=== PATIENT | female | born 1980 | race Caucasian/White ===

== ENCOUNTER 2017-01-04 16:19 | Emergency (ER) | payer BC ==
[~2017-01-04] VITALS: Ht 160 cm; Wt 88.5 kg
[~2017-01-04 16:19] MED LIST: ALPR-557 PO; ALPR2TAB2 PO; CEPH500C PO; CLON1TAB PO; CTLP20T PO; DCS100C PO; DULO60CA6; DULO60CA6 PO; FRS325T PO; IBP800T PO; LURA60TA2 PO; METR500T PO; MTR250T PO; NITR100C3 PO; ONDA4TAB8 PO; ONDAN4ODT PO; PHEN200T27 PO; PRD20T PO; PREN1TAB39 PO; PRM50SU PR; PROM25SU10 PR; SERT50TA PO; TEMA15CA54; TOPI100T PO; TRAZ50TA67; ZLP10T PO; lamictal PO
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
--- OUTSIDE RECORDS SUMMARY | 2017-01-04 16:25 | XMS REPORT ---
Author Author PORTIA GRIDER [facility] eClinicalWorks Address Unknown Phone Unavailable Care Team Providers Care Food Preparation Worker Name Role Phone PORTIA GRIDER CP Unavailable Allergies No Known Allergies Problems Problem Type Condition Code Onset Dates Condition Status Problem Incontinence R32 Active Problem Edema R60.9 Active Problem Hyperinsulinemia E16.1 Active Problem Post-traumatic stress disorder F43.10 Active Problem ADHD, predominantly inattentive type F90.0 Active Problem Bipolar II disorder F31.81 Active Medications Medication Code System Code Instructions Start Date End Date Status Dosage Concerta [facility] [address]-79 54 MG Orally Once a day for ADHD August 07, 2015 1 tablet in the morning Results No Known Results Summary Purpose eClinicalWorks Submission
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
--- OUTSIDE RECORDS SUMMARY | 2017-01-04 16:25 | XMS REPORT ---
Author ISAAC Kimball [facility] eClinicalWorks Address Unknown Phone Unavailable Care Team Providers Care Slate Roofer Helper Name Role Phone ISAAC NOVA CP Unavailable Allergies, Adverse Reactions, Alerts Substance Reaction Event Type Sulfamethoxazole-Trimethoprim Info Not Available Drug Allergy Keflex hives Drug Allergy Abilify 10 Mg Tablet Info Not Available Non Drug Allergy Problems Problem Type Condition Code Onset Dates Condition Status Assessment Edema R60.9 Active Assessment Post-traumatic stress disorder F43.10 Active Assessment Hyperinsulinemia E16.1 Active Assessment ADHD, predominantly inattentive type F90.0 Active Problem Incontinence R32 Active Problem Edema R60.9 Active Problem Hyperinsulinemia E16.1 Active Problem Post-traumatic stress disorder F43.10 Active Assessment Bipolar II disorder F31.81 Active Problem ADHD, predominantly inattentive type F90.0 Active Problem Bipolar II disorder F31.81 Active Medications Medication Code System Code Instructions Start Date End Date Status Dosage Sertraline HCl [facility] [id number] 100 MG TAKE ONE TABLET BY MOUTH DAILY FOR MOOD AND ANXIETY Latuda [facility] [address]-01 80 MG Orally Once a day 1 tablet with 350 calorie meal Depakote ER [facility] 26082955381 250 MG Orally Once a day at bedtime 1 tablet MetFORMIN HCl ER [facility] [address]-00 500 MG Orally Once a day July 28, 2015 1 tablet with evening meal Klonopin [facility] [address]-27 0.5 MG Orally Twice a day as needed for anxiety Nov 14, 2014 1 tablet Concerta [facility] [address]-96 54 MG Orally Once a day for ADHD August 07, 2015 1 tablet in the morning Zolpidem Tartrate [facility] [address]-45 5 mg Orally Once a day 1 tablet at bedtime Procedures Procedure Coding System Code Date Office Visit, Est Pt., Level 4 CPT-4 17815 Jan 15, 2016 Vital Signs Date/Time: Jan 15, 2016 Cardiac Monitoring Heart Rate 88 bpm Weight 198.0 lbs Height 63.5 in BMI 34.52 Index Blood Pressure Diastolic 82 mmHg Blood Pressure Systolic 130 mmHg Results No Known Results Summary Purpose eClinicalWorks Submission
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
--- OUTSIDE RECORDS SUMMARY | 2017-01-04 16:26 | XMS REPORT ---
Author Author PORTIA GRIDER [facility] eClinicalWorks Address Unknown Phone Unavailable Care Team Providers Care Intensive Care Ambulance Paramedic Name Role Phone PORTIA GRIDER CP Unavailable [...] Date End Date Status Dosage Zolpidem Tartrate [facility] [address]-72 5 mg Orally Once a day 1 tablet at bedtime Results No Known Results Summary Purpose eClinicalWorks Submission
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
--- OUTSIDE RECORDS SUMMARY | 2017-01-04 16:26 | XMS REPORT ---
Author Author ISAAC NOVA [facility] eClinicalWorks Address Unknown Phone Unavailable Care Team Providers Care Ordnance Handler Name Role Phone ISAAC NOVA Unavailable Allergies No Known Allergies Problems Problem Type Condition Code Onset Dates Condition Status Problem Incontinence R32 Active Problem Edema R60.9 Active Problem Hyperinsulinemia E16.1 Active Problem Post-traumatic stress disorder F43.10 Active Assessment Dysuria R30.0 Active Problem ADHD, predominantly inattentive type F90.0 Active Problem Bipolar II disorder F31.81 Active Medications No Known Medications Procedures Procedure Coding System Code Date THER/PROPH/DIAG INJ, SC/IM CPT-4 08449 Jan 23, 2016 ROCEPHIN 1 GM (IM) CPT-4 J0696 Jan 23, 2016 Results No Known Results Summary Purpose eClinicalWorks Submission
--- OUTSIDE RECORDS SUMMARY | 2017-01-04 16:26 | XMS REPORT ---
Author Author PORTIA GRIDER Organization [facility] Address [address] [place] [address] Care Team Providers Care Client Resource Specialist Name Role Phone PORTIA GRIDER Unavailable PROBLEMS Type Condition ICD9-CM Code [id number] Code Onset Dates Condition Status SNOMED Code Problem Hyperinsulinemia E16.1 Active 85153903 Problem Incontinence R32 Active 95707164 Problem Bipolar II disorder F31.81 Active 17648085 Problem Post-traumatic stress disorder F43.10 Active 19466787 Problem Edema R60.9 Active 378674577 Problem ADHD, predominantly inattentive type F90.0 Active 01440334 ALLERGIES Unknown Allergies SOCIAL HISTORY No smoking Hx information available PLAN OF CARE VITAL SIGNS MEDICATIONS Unknown Medications RESULTS Name Result Date Reference Range TSH 2016-04-26 TSH 2.650 0.450-4.500 INSULIN LEVEL 2016-04-26 Insulin 22.5 2.6-24.9 CBC 2016-04-26 WBC 7.8 3.4-10.8 RBC 4.17 3.77-5.28 Hemoglobin 11.8 11.1-15.9 Hematocrit 35.6 34.0-46.6 MCV 85 79-97 MCH 28.3 26.6-33.0 MCHC 33.1 31.5-35.7 RDW 14.1 12.3-15.4 Platelets 222 150-379 Neutrophils 69 Lymphs 24 Monocytes 6 Eos 1 Basos 0 Neutrophils (Absolute) 5.4 1.4-7.0 Lymphs (Absolute) 1.9 0.7-3.1 Monocytes(Absolute) 0.5 0.1-0.9 Eos (Absolute) 0.1 0.0-0.4 Baso (Absolute) 0.0 0.0-0.2 Immature Granulocytes 0 Immature Grans (Abs) 0.0 0.0-0.1 CMP 2016-04-26 Glucose, Serum 98 65-99 BUN 13 6-20 Creatinine, Serum 0.84 0.57-1.00 eGFR If NonAfricn Am 92 >59 eGFR If Africn Am 106 >59 BUN/Creatinine Ratio 15 8-20 Sodium, Serum 140 134-144 Potassium, Serum 4.4 3.5-5.2 Chloride, Serum 102 96-106 Carbon Dioxide, Total 21 18-29 Calcium, Serum 9.2 8.7-10.2 Protein, Total, Serum 6.9 6.0-8.5 Albumin, Serum 4.3 3.5-5.5 Globulin, Total 2.6 1.5-4.5 A/G Ratio 1.7 1.1-2.5 Bilirubin, Total 0.2 0.0-1.2 Alkaline Phosphatase, S 49 39-117 AST (SGOT) 12 0-40 ALT (SGPT) 11 0-32 PROCEDURES Procedure Date Ordered Related Diagnosis Body Site ASSAY THYROID STIM HORMONE Apr 26, 2016 ASSAY OF INSULIN Apr 26, 2016 COMPREHEN METABOLIC PANEL Apr 26, 2016 COMPLETE CBC W/AUTO DIFF WBC Apr 26, 2016 VENIPUNCT, ROUTINE* Apr 26, 2016 IMMUNIZATIONS No Known Immunizations
--- OUTSIDE RECORDS SUMMARY | 2017-01-04 16:26 | XMS REPORT ---
Author Author PORTIA GRIDER [facility] Address [address] [place] [address] Care Team Providers Care Business Database Analyst Name Role Phone PORTIA GRIDER Unavailable PROBLEMS Type Condition ICD9-CM Code [id number] Code Onset Dates Condition Status SNOMED Code Problem Alcohol consumption binge drinking F10.10 Active 411994048 Problem Chronic post-traumatic stress disorder (PTSD) F43.12 Active 366113789 Problem Bipolar II disorder F31.81 Active 57171994 Problem Hyperinsulinemia E16.1 Active 74388793 Problem ADHD, predominantly inattentive type F90.0 Active 36408619 ALLERGIES No Information SOCIAL HISTORY Never Assessed PLAN OF CARE VITAL SIGNS MEDICATIONS Unknown Medications RESULTS No Results PROCEDURES No Known procedures IMMUNIZATIONS No Known Immunizations MEDICAL (GENERAL) HISTORY Type Description Date Medical History Posttraumatic stress disorder Medical History Bipolar II disorder Medical History Hyperinsulinemia Medical History ADHD, predominantly inattentive type Medical History Alcohol abuse Surgical History D&C x 2 Surgical History tubal ligation Surgical History tonsillectomy and adenoidectomy Surgical History 2010 Hospitalization History surgeries
--- OUTSIDE RECORDS SUMMARY | 2017-01-04 16:26 | XMS REPORT ---
Author Author PORTIA GRIDER [facility] Address [address] [place] [address] Care Team Providers Care Hydrate Control Tender Name Role Phone PORTIA GRIDER Unavailable PROBLEMS Type Condition ICD9-CM Code [id number] Code Onset Dates Condition Status SNOMED Code Problem Post-traumatic stress disorder F43.10 Active 12376105 Problem Chronic post-traumatic stress disorder (PTSD) F43.12 Active 218928050 Problem Hyperinsulinemia E16.1 Active 07973602 Problem ADHD, predominantly inattentive type F90.0 Active 77165499 Problem Bipolar II disorder F31.81 Active 07675852 Problem Edema R60.9 Active 912415171 Problem Incontinence R32 Active 01173807 ALLERGIES Unknown Allergies SOCIAL HISTORY No smoking Hx information available PLAN OF CARE VITAL SIGNS MEDICATIONS Unknown Medications RESULTS No Results PROCEDURES No Known procedures IMMUNIZATIONS No Known Immunizations
--- OUTSIDE RECORDS SUMMARY | 2017-01-04 16:26 | XMS REPORT ---
Author Author ISAAC NOVA [facility] eClinicalWorks Address Unknown Phone Unavailable Care Team Providers Care Medical Facilities Section Director Name Role Phone ISAAC NOVA Unavailable Allergies No Known Allergies Problems Problem Type Condition Code Onset Dates Condition Status Problem Edema R60.9 Active Problem Bipolar II disorder F31.81 Active Problem Incontinence R32 Active Assessment Edema R60.9 Active Problem Post-traumatic stress disorder F43.10 Active Assessment Weight gain R63.5 Active Medications No Known Medications Procedures Procedure Coding System Code Date ASSAY OF INSULIN CPT-4 35138 July 24, 2015 COMPLETE CBC W/AUTO DIFF WBC CPT-4 13751 July 24, 2015 ASSAY THYROID STIM HORMONE CPT-4 74312 July 24, 2015 COMPREHEN METABOLIC PANEL CPT-4 92915 July 24, 2015 LIPID PANEL CPT-4 75475 July 24, 2015 VENIPUNCT, ROUTINE* CPT-4 19134 July 24, 2015 Results No Known Results Summary Purpose eClinicalWorks Submission
--- OUTSIDE RECORDS SUMMARY | 2017-01-04 16:26 | XMS REPORT ---
Author Author PORTIA GRIDER Organization [facility] Address [address] [place] [address] Care Team Providers Care Gas Engine Operator Compressors Name Role Phone PORTIA GRIDER Unavailable PROBLEMS Type Condition ICD9-CM Code [id number] Code Onset Dates Condition Status SNOMED Code Problem Post-traumatic stress disorder F43.10 Active 08591318 Problem Chronic post-traumatic stress disorder (PTSD) F43.12 Active 650272266 Problem Hyperinsulinemia E16.1 Active 21359445 Problem ADHD, predominantly inattentive type F90.0 Active 11583799 Problem Bipolar II disorder F31.81 Active 93209647 Problem Edema R60.9 Active 401730391 Problem Incontinence R32 Active 73985584 ALLERGIES Unknown Allergies SOCIAL HISTORY No smoking Hx information available PLAN OF CARE Activity Details Follow Up 3 Months Reason: VITAL SIGNS Height 63.5 in 2016-04-15 Weight 198.4 lbs 2016-04-15 Heart Rate 78 bpm 2016-04-15 Respiratory Rate 20 2016-04-15 BMI 34.59 kg/m2 2016-04-15 Blood pressure systolic 118 mmHg 2016-04-15 Blood pressure diastolic 78 mmHg 2016-04-15 MEDICATIONS Medication Instructions Dosage Frequency Start Date End Date Duration Status Klonopin 0.5 MG Orally Twice a day, AM and 4pm 1 tablet Oct, Active Concerta 54 MG Orally Once a day for ADHD 1 tablet in the morning Mar Active Latuda 80 MG Orally Once a day 1 tablet with 350 calorie meal 24h Active HydrOXYzine Pamoate 25 MG Orally at bedtime for sleep 1 -2 capsule as needed Mar, 30 days Active Zoloft 100 MG Orally Once a day 1.5 tablets 24h Feb, Active RESULTS No Results PROCEDURES Procedure Date Ordered Related Diagnosis Body Site MH Office Visit, Est Pt., Level 4 Apr 15, 2016 IMMUNIZATIONS No Known Immunizations
--- OUTSIDE RECORDS SUMMARY | 2017-01-04 16:26 | XMS REPORT ---
Author Author JESSICA GOLD Organization [facility] Address [address] [place] [address] Care Team Providers Care Firm Administrator Name Role Phone JESSICA GOLD Unavailable PROBLEMS Type Condition ICD9-CM Code [id number] Code Onset Dates Condition Status SNOMED Code Problem Post-traumatic stress disorder F43.10 Active 61213755 Problem Chronic post-traumatic stress disorder (PTSD) F43.12 Active 982518000 Problem Hyperinsulinemia E16.1 Active 37068165 Problem ADHD, predominantly inattentive type F90.0 Active 08274643 Problem Bipolar II disorder F31.81 Active 81668568 Problem Edema R60.9 Active 689357041 Problem Incontinence R32 Active 87075272 ALLERGIES Substance Reaction Event Type Date Status Sulfamethoxazole-Trimethoprim Unknown Drug Allergy Apr, Active Keflex hives Drug Allergy Apr, Active Abilify 10 Mg Tablet Unknown Non Drug Allergy Apr, Active SOCIAL HISTORY No smoking Hx information available PLAN OF CARE Activity Details Follow Up prn Reason: VITAL SIGNS Height 63.5 in 2016-05-03 Weight 194.6 lbs 2016-05-03 Temperature 98.8 degrees Fahrenheit 2016-05-03 Heart Rate 84 bpm 2016-05-03 Respiratory Rate 22 2016-05-03 BMI 33.93 kg/m2 2016-05-03 Blood pressure systolic 103 mmHg 2016-05-03 Blood pressure diastolic 75 mmHg 2016-05-03 MEDICATIONS Medication Instructions Dosage Frequency Start Date End Date Duration Status Concerta 54 MG Orally Once a day for ADHD 1 tablet in the morning Apr 28 days Active Zoloft 100 MG Orally Once a day 1.5 tablets 24h Feb, Active Latuda 80 MG Orally Once a day 1 tablet with 350 calorie meal 24h Active HydrOXYzine Pamoate 25 MG Orally at bedtime for sleep 1 -2 capsule as needed Mar, 30 days Active Klonopin 0.5 MG Orally Twice a day, AM and 4pm 1 tablet Oct, Active RESULTS No Results PROCEDURES Procedure Date Ordered Related Diagnosis Body Site Office Visit, Est Pt., Level 3 May 03, 2016 IMMUNIZATIONS No Known Immunizations
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
--- OUTSIDE RECORDS SUMMARY | 2017-01-04 16:27 | XMS REPORT ---
Author Author JIMENA HODGES [facility] eClinicalWorks Address Unknown Phone Unavailable Care Team Providers Care Commissions Coordinator Name Role Phone JIMENA HODGES Unavailable Allergies No Known Allergies Problems Problem Type Condition Code Onset Dates Condition Status Problem Edema R60.9 Active Problem Bipolar II disorder F31.81 Active Problem Incontinence R32 Active Problem Post-traumatic stress disorder F43.10 Active Medications No Known Medications Results No Known Results Summary Purpose eClinicalWorks Submission
--- OUTSIDE RECORDS SUMMARY | 2017-01-04 16:27 | XMS REPORT ---
Author Author PORTIA GRIDER [facility] eClinicalWorks Address Unknown Phone Unavailable Care Team Providers Care Tool Design Checker Name Role Phone PORTIA GRIDER CP Unavailable [...] Status Dosage Zolpidem Tartrate [facility] [address]-33 5 mg Orally Once a day 1 tablet at bedtime Results No Known Results Summary Purpose eClinicalWorks Submission
--- OUTSIDE RECORDS SUMMARY | 2017-01-04 16:27 | XMS REPORT ---
Author Author PORTIA GRIDER Organization [facility] Address [address] [place] [address] Care Team Providers Care Railway Traction Line Worker Name Role Phone PORTIA GRIDER Unavailable PROBLEMS Type Condition ICD9-CM Code [id number] Code Onset Dates Condition Status SNOMED Code Problem Hyperinsulinemia E16.1 Active 96565859 Problem Incontinence R32 Active 20048515 Problem Bipolar II disorder F31.81 Active 16596152 Problem Post-traumatic stress disorder F43.10 Active 96074043 Problem Edema R60.9 Active 590015520 Problem ADHD, predominantly inattentive type F90.0 Active 24372237 ALLERGIES Unknown Allergies SOCIAL HISTORY No smoking Hx information available PLAN OF CARE Activity Details Follow Up 4-6 Weeks Reason: VITAL SIGNS Height 63.5 in 2016-03-09 Weight 201 lbs 2016-03-09 Heart Rate 80 bpm 2016-03-09 Respiratory Rate 20 2016-03-09 BMI 35.04 kg/m2 2016-03-09 Blood pressure systolic 118 mmHg 2016-03-09 Blood pressure diastolic 70 mmHg 2016-03-09 MEDICATIONS Medication Instructions Dosage Frequency Start Date End Date Duration Status Zoloft 100 MG Orally Once a day 1.5 tablets 24h Feb, Active Concerta 54 MG Orally Once a day for ADHD 1 tablet in the morning Feb Active Sertraline HCl 100 MG TAKE ONE TABLET BY MOUTH DAILY FOR MOOD AND ANXIETY Active Latuda 80 MG Orally Once a day 1 tablet with 350 calorie meal 24h Active Klonopin 0.5 MG Orally for anxiety 1 tablet in the AM and 2 tabs at bedtime Oct, Active RESULTS No Results PROCEDURES Procedure Date Ordered Related Diagnosis Body Site MH Office Visit, Est Pt., Level 4 Mar 09, 2016 IMMUNIZATIONS No Known Immunizations
--- OUTSIDE RECORDS SUMMARY | 2017-01-04 16:27 | XMS REPORT ---
Author Author ISAAC NOVA Organization [facility] Address [address] [place] [address] Care Team Providers Care Hotel Or Motel Cleaning Supervisor Name Role Phone ISAAC NOVA Unavailable PROBLEMS Type Condition ICD9-CM Code BPU26-EV Code Onset Dates Condition Status SNOMED Code Problem Hyperinsulinemia E16.1 Active 37385738 Problem Incontinence R32 Active 94725178 Problem Bipolar II disorder F31.81 Active 65410755 Problem Post-traumatic stress disorder F43.10 Active 59240163 Problem Edema R60.9 Active 455615368 Problem ADHD, predominantly inattentive type F90.0 Active 66937275 ALLERGIES Unknown Allergies SOCIAL HISTORY No smoking Hx information available PLAN OF CARE VITAL SIGNS MEDICATIONS Medication Instructions Dosage Frequency Start Date End Date Duration Status MetFORMIN HCl ER 500 MG Orally Once a day 1 tablet with evening meal 24h July, Active RESULTS No Results PROCEDURES No Known procedures IMMUNIZATIONS No Known Immunizations
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
--- OUTSIDE RECORDS SUMMARY | 2017-01-04 16:27 | XMS REPORT ---
Author Author PORTIA GRIDER Organization [facility] Address [address] [place] [address] Care Team Providers Care Dye Range Feeder Name Role Phone PORTIA GRIDER Unavailable PROBLEMS Type Condition ICD9-CM Code CIP33-EG Code Onset Dates Condition Status SNOMED Code Problem Hyperinsulinemia E16.1 Active 67660057 Problem Incontinence R32 Active 07531741 Problem Bipolar II disorder F31.81 Active 61382323 Problem Post-traumatic stress disorder F43.10 Active 92691404 Problem Edema R60.9 Active 808956972 Problem ADHD, predominantly inattentive type F90.0 Active 74310302 ALLERGIES Unknown Allergies SOCIAL HISTORY No smoking Hx information available PLAN OF CARE VITAL SIGNS MEDICATIONS Medication Instructions Dosage Frequency Start Date End Date Duration Status Concerta 36 MG Orally Once a day for ADHD 1 tablet in the morning July Active RESULTS No Results PROCEDURES No Known procedures IMMUNIZATIONS No Known Immunizations
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
--- OUTSIDE RECORDS SUMMARY | 2017-01-04 16:27 | XMS REPORT ---
Author Author PORTIA GRIDER Organization [facility] Address [address] [place] [address] Care Team Providers Care Watershed Tender Name Role Phone PORTIA GRIDER Unavailable PROBLEMS Type Condition ICD9-CM Code [id number] Code Onset Dates Condition Status SNOMED Code Problem Post-traumatic stress disorder F43.10 Active 98166573 Problem Chronic post-traumatic stress disorder (PTSD) F43.12 Active 724937788 Problem Hyperinsulinemia E16.1 Active 39984237 Problem ADHD, predominantly inattentive type F90.0 Active 02953234 Problem Bipolar II disorder F31.81 Active 65930030 Problem Edema R60.9 Active 435033049 Problem Incontinence R32 Active 85082548 ALLERGIES Unknown Allergies SOCIAL HISTORY No smoking Hx information available PLAN OF CARE VITAL SIGNS MEDICATIONS Medication Instructions Dosage Frequency Start Date End Date Duration Status Concerta 54 MG Orally Once a day for ADHD 1 tablet in the morning Apr 28 days Active RESULTS No Results PROCEDURES No Known procedures IMMUNIZATIONS No Known Immunizations
--- OUTSIDE RECORDS SUMMARY | 2017-01-04 16:27 | XMS REPORT ---
Author Author ISAAC NOVA [facility] Address [address] [place] [address] Care Team Providers Care Patient Coordinator Name Role Phone ISAAC NOVA Unavailable PROBLEMS Type Condition ICD9-CM Code [id number] Code Onset Dates Condition Status SNOMED Code Problem Hyperinsulinemia E16.1 Active 56396161 Problem Incontinence R32 Active 92153017 Problem Bipolar II disorder F31.81 Active 57625891 Problem Post-traumatic stress disorder F43.10 Active 47311799 Problem Edema R60.9 Active 538048273 Problem ADHD, predominantly inattentive type F90.0 Active 66303102 ALLERGIES Unknown Allergies SOCIAL HISTORY No smoking Hx information available PLAN OF CARE VITAL SIGNS MEDICATIONS Unknown Medications RESULTS No Results PROCEDURES No Known procedures IMMUNIZATIONS No Known Immunizations
--- OUTSIDE RECORDS SUMMARY | 2017-01-04 16:27 | XMS REPORT ---
Author Author PORTIA GRIDER [facility] eClinicalWorks Address Unknown Phone Unavailable Care Team Providers Care Senior Research Executive Name Role Phone PORTIA GRIDER CP Unavailable [...] Start Date End Date Status Dosage Concerta [facility] [address]-27 54 MG Orally Once a day for ADHD August 07, 2015 1 tablet in the morning Results No Known Results Summary Purpose eClinicalWorks Submission
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
--- OUTSIDE RECORDS SUMMARY | 2017-01-04 16:27 | XMS REPORT ---
Author Author PORTIA GRIDER Organization [facility] Address [address] [place] [address] Care Team Providers Care Timber Faller Name Role Phone PORTIA GRIDER Unavailable PROBLEMS Type Condition ICD9-CM Code IPO68-LF Code Onset Dates Condition Status SNOMED Code Problem Hyperinsulinemia E16.1 Active 93365639 Problem Incontinence R32 Active 28716279 Problem Bipolar II disorder F31.81 Active 16948622 Problem Post-traumatic stress disorder F43.10 Active 56824079 Problem Edema R60.9 Active 596087731 Problem ADHD, predominantly inattentive type F90.0 Active 09902917 ALLERGIES Unknown Allergies SOCIAL HISTORY No smoking Hx information available PLAN OF CARE VITAL SIGNS MEDICATIONS Medication Instructions Dosage Frequency Start Date End Date Duration Status Concerta 54 MG Orally Once a day for ADHD 1 tablet in the morning Mar 28 days Active RESULTS No Results PROCEDURES No Known procedures IMMUNIZATIONS No Known Immunizations
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
--- OUTSIDE RECORDS SUMMARY | 2017-01-04 16:28 | XMS REPORT ---
Author Author PORTIA GRIDER Organization [facility] Address [address] [place] [address] Care Team Providers Care Relief Salesperson Name Role Phone PORTIA GRIDER Unavailable PROBLEMS Type Condition ICD9-CM Code BVA19-OS Code Onset Dates Condition Status SNOMED Code Problem Hyperinsulinemia E16.1 Active 41734468 Problem Incontinence R32 Active 17518156 Problem Bipolar II disorder F31.81 Active 93944442 Problem Post-traumatic stress disorder F43.10 Active 00684598 Problem Edema R60.9 Active 721897469 Problem ADHD, predominantly inattentive type F90.0 Active 63863979 ALLERGIES Unknown Allergies SOCIAL HISTORY No smoking Hx information available PLAN OF CARE VITAL SIGNS MEDICATIONS Medication Instructions Dosage Frequency Start Date End Date Duration Status Klonopin 0.5 MG Orally Twice a day as needed for anxiety 1 tablet Oct Active RESULTS No Results PROCEDURES No Known procedures IMMUNIZATIONS No Known Immunizations
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
[2017-01-04] MEDS ORDERED: NS IV 1000 ML 1,000 ML ONE (16:56)
[2017-01-04] MEDS ORDERED: ONDANSETRON 4 MG/2 ML (SDV) Z0FRAN ONE (16:56)
[2017-01-04] MEDS ORDERED: METH27TA4 PO (17:01)
--- NOTE | 2017-01-04 17:07 | ED GU-Female ---
General Chief Complaint: -Female Stated Complaint: DIZZINESS,NAUSEA Nursing Triage Note: PT CO OF URINE FREQUENCY, BLOOD IN URINE, NAUSEA STARTED 3 DAYS AGO Nursing Sepsis Screen: No Definite Risk Source: patient Exam Limitations: no limitations History of Present Illness Time seen by provider: 17:06 Initial Comments ER with nausea, urinary frequency, intermittent blood in her urine, general malaise. Denies flank pain. Denies actual vomiting. Denies fevers or chills. Severity/Quality: moderate Location: other Radiation: none Activities at Onset: none Prior 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 Problems: none Associated Symptoms: dysuria Allergies and Home Medications Allergies Coded Allergies: Sulfa (Sulfonamide Antibiotics) (Unverified Allergy, Unknown, 10/22/09) cephalexin (Verified Allergy, Unknown, 01/30/15) Home Medications Clonazepam 1 Mg Tablet, 1 MG PO BID, (Reported) Duloxetine HCl 60 Mg Capsule.dr, 60 MG PO DAILY, (Reported) Lurasidone HCl 60 Mg Tablet, 60 MG PO DAILY, (Reported) Methylphenidate HCl 27 Mg Tab.er.24, Unknown Dose PO, (Reported) Constitutional: see HPI EENTM: see HPI Respiratory: no symptoms reported Cardiovascular: no symptoms reported 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: see HPI, dysuria Musculoskeletal: no symptoms reported Skin: no symptoms reported Psychiatric/Neurological: No Symptoms Reported Past Kxbksbh-Zqjyhn-Jreacl Hx Patient Social History Alcohol Use: Denies Use Recreational Drug Use: No Smoking Status: Never a Smoker Recent Foreign Travel: No Contact w/Someone Who Travel: No Recent Infectious Disease Expo: No Recent Hopitalizations: No Physical Abuse: No Sexual Abuse: No Immunizations Up To Date Tetanus Booster (TDap): Unknown Surgeries History of Surgeries: Yes ( d&c x 2) Surgeries: Adenoidectomy, Section, Tonsillectomy, Tubal Ligation Respiratory History of Respiratory Disorde: No Cardiovascular History of Cardiac Disorders: No Neurological History of Neurological Disord: No Reproductive System Last Menstrual Period: Dec 21, 2016 Hx Reproductive Disorders: No 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 Disorders: UTI-Chronic Gastrointestinal History of Gastrointestinal Di: No Musculoskeletal History of Musculoskeletal Dis: No Endocrine History of Endocrine Disorders: No Cancer History of Cancer: No Psychosocial History of Psychiatric Problem: No Behavioral Health Disorders: Anxiety, Depression Suicide Risk Score: 0 Blood Transfusions History of Blood Disorders: No Family Medical History Significant Family History: No Pertinent Family Hx Physical Exam Vital Signs Vital Sign - Last 12Hours 01/04/17 16:56 Temp 97.6 Pulse 102 Resp 18 B/P (MAP) 135/86 Pulse Ox 95 Capillary Refill : Less Than 3 Seconds General Appearance: WD/WN, no apparent distress HEENT: PERRL/EOMI, normal ENT inspection Neck: non-tender, full range of motion Respiratory: no respiratory distress, no accessory muscle use Gastrointestinal: normal bowel sounds, non tender, soft Extremities: normal range of motion, non-tender Neurologic/Psychiatric: alert, normal mood/affect, oriented x 3 Skin: normal color, warm/dry Progress/Results/Core Measures Results/Orders Lab Results Laboratory Tests Test 01/04/17 17:00 Range/Units White Blood Count 8.6 4.3-11.0 10^3/uL Red Blood Count 4.46 4.35-5.85 10^6/uL Hemoglobin 12.6 11.5-16.0 G/DL Hematocrit 38 35-52 % Mean Corpuscular Volume 84 80-99 FL Mean Corpuscular Hemoglobin 28 25-34 PG Mean Corpuscular Hemoglobin Concent 34 32-36 G/DL Red Cell Distribution Width 13.3 10.0-14.5 % Platelet Count 272 130-400 10^3/uL Mean Platelet Volume 10.4 7.4-10.4 FL Neutrophils (%) (Auto) 66 42-75 % Lymphocytes (%) (Auto) 27 12-44 % Monocytes (%) (Auto) 6 0-12 % Eosinophils (%) (Auto) 1 0-10 % Basophils (%) (Auto) 1 0-10 % Neutrophils # (Auto) 5.7 1.8-7.8 X 10^3 Lymphocytes # (Auto) 2.3 1.0-4.0 X 10^3 Monocytes # (Auto) 0.5 0.0-1.0 X 10^3 Eosinophils # (Auto) 0.0 0.0-0.3 10^3/uL Basophils # (Auto) 0.0 0.0-0.1 10^3/uL Urine Color YELLOW Urine Clarity VERY CLOUDY H Urine pH 6 5-9 Urine Specific [place] 1.010 L 1.016-1.022 Urine Protein 1+ H NEGATIVE Urine Glucose (UA) NEGATIVE NEGATIVE Urine Ketones NEGATIVE NEGATIVE Urine Nitrite NEGATIVE NEGATIVE Urine Bilirubin NEGATIVE NEGATIVE Urine Urobilinogen NORMAL NORMAL MG/DL Urine Leukocyte Esterase 3+ H NEGATIVE Urine RBC (Auto) 2+ H NEGATIVE Urine RBC 2-5 H /HPF Urine WBC TNTC H /HPF Urine Squamous Epithelial Cells 25-50 H /HPF Urine Crystals NONE /LPF Urine Bacteria LARGE H /HPF Urine Casts NONE /LPF Urine Mucus NEGATIVE /LPF Urine Culture Indicated YES Sodium Level 138 135-145 MMOL/L Potassium Level 3.4 L 3.6-5.0 MMOL/L Chloride Level 105 98-107 MMOL/L Carbon Dioxide Level 24 21-32 MMOL/L Anion Gap 9 5-14 MMOL/L Blood Urea Nitrogen 8 7-18 MG/DL Creatinine 0.88 0.60-1.30 MG/DL Estimat Glomerular Filtration Rate > 60 BUN/Creatinine Ratio 9 Glucose Level 104 70-105 MG/DL Calcium Level 9.5 8.5-10.1 MG/DL Total Bilirubin 0.3 0.1-1.0 MG/DL Aspartate Amino Transf (AST/SGOT) 21 5-34 U/L Alanine Aminotransferase (ALT/SGPT) 29 0-55 U/L Alkaline Phosphatase 50 40-136 U/L Total Protein 8.0 6.4-8.2 GM/DL Albumin 4.4 3.2-4.5 GM/DL Urine Opiates Screen NEGATIVE NEGATIVE Urine Oxycodone Screen NEGATIVE NEGATIVE Urine Methadone Screen NEGATIVE NEGATIVE Urine Propoxyphene Screen NEGATIVE NEGATIVE Urine Barbiturates Screen NEGATIVE NEGATIVE Ur Tricyclic Antidepressants Screen NEGATIVE NEGATIVE Urine Phencyclidine Screen NEGATIVE NEGATIVE Urine Amphetamines Screen NEGATIVE NEGATIVE Urine Methamphetamines Screen NEGATIVE NEGATIVE Urine Benzodiazepines Screen NEGATIVE NEGATIVE Urine Cocaine Screen NEGATIVE NEGATIVE Urine Cannabinoids Screen NEGATIVE NEGATIVE My Orders Orders - KATIA OSBORNE APRN Ua Culture If Indicated (01/04/17 16:55) Urine Bedside (01/04/17 16:55) Drug Screen Stat (Urine) (01/04/17 16:55) Ondansetron Injection (Zofran Injectio (01/04/17 16:56) Ns Iv 1000 Ml (Sodium Chloride 0.9%) (01/04/17 16:56) Cbc With Automated Diff (01/04/17 17:05) Comprehensive Metabolic Panel (01/04/17 17:05) Saline Lock/Iv-Start (01/04/17 17:05) Ondansetron Injection (Zofran Injectio (01/04/17 17:15) Ns Iv 1000 Ml (Sodium Chloride 0.9%) (01/04/17 17:15) Urine Culture (01/04/17 17:00) Levofloxacin Tablet (Levaquin Tablet) (01/04/17 17:30) Medications Given in ED Current Medications Medications Dose Ordered Sig/Denae Route Start Time Stop Time Status Last Admin Dose Admin Ondansetron HCl 4 mg STK-MED ONCE .ROUTE 01/04/17 16:56 01/04/17 17:04 DC 01/04/17 17:05 4 MG Sodium Chloride 1,000 ml @ ud STK-MED ONCE .ROUTE 01/04/17 16:56 01/04/17 17:04 DC 01/04/17 17:05 1,000 MLS/HR Vital Signs/I&O Vital Sign - Last 12Hours 01/04/17 16:56 Temp 97.6 Pulse 102 Resp 18 B/P (MAP) 135/86 Pulse Ox 95 Blood Pressure Mean: 102 Point of Care Testing Urine -Bedside: Negative Departure Communication (Admissions) Progress Notes Patient lists an allergy to Keflex and sulfa but states that she can take penicillins. Impression Impression: Primary Impression: Urinary tract infection Disposition: 01 HOME, SELF-CARE Condition: Stable Departure-Patient Inst. Decision time for Depature: 17:35 Referrals: [facility] (PCP/Family) Primary Care Physician Patient Instructions: Urinary Tract Infection, Adult (DC) Add. Discharge Instructions: 1. Antibiotics as directed 2. Nausea medication as directed 3. See your doctor next week 4. Return to ER for any worsening All discharge instructions reviewed with patient and/or family. Voiced understanding. Scripts Ondansetron (Zofran Odt) 8 Mg Tab.rapdis 8 MG PO Q6H Y for NAUSEA/VOMITING-1ST LINE, #10 TAB Prov: KATIA OSBORNE APRN 01/04/17 Amoxicillin (Amoxicillin) 500 Mg Capsule 500 MG PO TID, #15 CAP Prov: KATIA OSBORNE APRN 01/04/17 Work/School Note: Work Release Form Date Seen in the Emergency Department: Jan 04, 2017 Return to Work: Jan 06, 2017 KATIA OSBORNE APRN Jan 04, 2017 17:07
[2017-01-04 17:14] LABS: BASOPHILS % (AUTO) 1 % (0-10); EOSINOPHILS % (AUTO) 1 % (0-10); LYMPHOCYTES # (AUTO) 2.3 X 10^3 (1.0-4.0); LYMPHOCYTES % (AUTO) 27 % (12-44); MEAN CORPUSCULAR HEMOGLOBIN 28 PG (25-34); MEAN CORPUSCULAR HGB CONC 34 G/DL (32-36); MEAN CORPUSCULAR VOLUME 84 FL (80-99); MEAN PLATELET VOLUME 10.4 FL (7.4-10.4); MONOCYTES # (AUTO) 0.5 X 10^3 (0.0-1.0); MONOCYTES % (AUTO) 6 % (0-12); NEUTROPHILS # (AUTO) 5.7 X 10^3 (1.8-7.8); NEUTROPHILS % (AUTO) 66 % (42-75); PLATELET COUNT 272 10^3/uL (130-400); RED BLOOD COUNT 4.46 10^6/uL (4.35-5.85); RED CELL DISTRIBUTION WIDTH 13.3 % (10.0-14.5); WHITE BLOOD COUNT 8.6 10^3/uL (4.3-11.0)
[2017-01-04 17:15] LABS: BILIRUBIN,URINE NEGATIVE (NEGATIVE); KETONES,URINE NEGATIVE (NEGATIVE); LEUKOCYTE ESTERASE ,URINE 3+ (NEGATIVE); NITRITE,URINE NEGATIVE (NEGATIVE); PH,URINE 6 (5-9); PROTEIN,URINE 1+ (NEGATIVE); UROBILINOGEN,URINE NORMAL (NORMAL)
[2017-01-04] MEDS ORDERED: NS IV 1000 ML 1,000 ML IV SCH (17:15)
[2017-01-04] MEDS ORDERED: ONDANSETRON 4 MG/2 ML (SDV) Z0FRAN IVP ONE (17:15)
[2017-01-04 17:22] LABS: SQUAMOUS EPITHELIAL CELL,UR 25-50 /HPF; WBC,URINE TNTC /HPF
[2017-01-04] MEDS ORDERED: LEVOFLOXACIN 500 MG TAB (LEVAQUIN) PO ONE (17:30)
[2017-01-04 17:37] LABS: ALANINE AMINOTRANSFERASE 29 U/L (0-55); ALBUMIN 4.4 GM/DL (3.2-4.5); ANION GAP 9 MMOL/L (5-14); ASPARTATE AMINO TRANSFERASE 21 U/L (5-34); BILIRUBIN,TOTAL 0.3 MG/DL (0.1-1.0); BLOOD UREA NITROGEN 8 MG/DL (7-18); BUN/CREATININE RATIO 9; CALCIUM 9.5 MG/DL (8.5-10.1); CARBON DIOXIDE 24 MMOL/L (21-32); CHLORIDE 105 MMOL/L (98-107); CREATININE SERUM 0.88 MG/DL (0.60-1.30); GFR ESTIMATED > 60; GLUCOSE 104 MG/DL (70-105); POTASSIUM 3.4 MMOL/L (3.6-5.0); SODIUM 138 MMOL/L (135-145)
[2017-01-04] MEDS ORDERED: ONDA8TAB9 PO (17:42)
[2017-01-04] MEDS ORDERED: AMOX500C2 PO (17:42)
[2017-01-04 17:59] VITALS: BP 122/75
== END 2017-01-04 17:58 | disposition home or self-care (01) ==
LOC: EDUNIT# 16:19 → ER 16:21
DX: N39.0 Urinary tract infection, site not specified (principal); F41.9 Anxiety disorder, unspecified; F32.9 Major depressive disorder, single episode, unspecified; Z98.51 Tubal ligation status; Z90.89 Acquired absence of other organs; Z87.59 Personal history of other complications of pregnancy, childbirth and the puerperium
CPT/HCPCS: 36415; 80053; 80306; 81000; 84703; 85025; 87088

== ENCOUNTER 2017-03-15 14:15 | Emergency (ER) | payer SELFPAY ==
[~2017-03-15] VITALS: Ht 160 cm; Wt 86.2 kg
[~2017-03-15 14:15] MED LIST changes: +AMOX500C2 PO; +METH27TA4 PO; +ONDA8TAB9 PO
--- OUTSIDE RECORDS SUMMARY | 2017-03-15 14:31 | XMS REPORT ---
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 Phone PORTIA GRIDER Unavailable PROBLEMS Type Condition ICD9-CM Code [id number] Code Onset Dates Condition Status SNOMED Code Problem Alcohol consumption binge drinking F10.10 Active 929391220 Problem Chronic post-traumatic stress disorder (PTSD) F43.12 Active 418822176 Problem Bipolar II disorder F31.81 Active 14412660 Problem Hyperinsulinemia E16.1 Active 83803027 Problem ADHD, predominantly inattentive type F90.0 Active 07268051 ALLERGIES Substance Reaction Event Type Date Status Sulfamethoxazole-Trimethoprim Unknown Drug Allergy Jun, Active Keflex hives Drug Allergy Jun, Active Abilify 10 Mg Tablet Unknown Non Drug Allergy Jun, Active SOCIAL HISTORY Never Assessed PLAN OF CARE Activity Details Follow Up 2 Months Reason: VITAL SIGNS Height 63.5 in 2016-07-13 Weight 200.0 lbs 2016-07-13 Heart Rate 82 bpm 2016-07-13 Respiratory Rate 20 2016-07-13 BMI 34.87 kg/m2 2016-07-13 Blood pressure systolic 120 mmHg 2016-07-13 Blood pressure diastolic 78 mmHg 2016-07-13 MEDICATIONS Medication Instructions Dosage Frequency Start Date End Date Duration Status Methylphenidate HCl 10 MG Orally in the morning for ADHD 1 tablet on an empty stomach May, Active Zoloft 100 MG Orally Once a day 1.5 tablets 24h Feb, Active Latuda 80 MG Orally Once a day 1 tablet with 350 calorie meal 24h Active Klonopin 0.5 MG Orally Twice a day, AM and 4pm 1 tablet Oct, Active Concerta 54 MG Orally Once a day for ADHD 1 tablet in the morning Apr Active RESULTS No Results PROCEDURES No Known [...]
--- OUTSIDE RECORDS SUMMARY | 2017-03-15 14:32 | XMS REPORT ---
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 Phone PORTIA GRIDER Unavailable PROBLEMS Type Condition ICD9-CM Code [id number] Code Onset Dates Condition Status SNOMED Code Problem Alcohol use disorder, moderate, dependence F10.20 Active 625733098 Problem Alcohol consumption binge drinking F10.10 Active 979686313 Problem ADHD, predominantly inattentive type F90.0 Active 50773414 Problem Bipolar II disorder F31.81 Active 74265162 Problem Chronic post-traumatic stress disorder (PTSD) F43.12 Active 977490022 Problem Hyperinsulinemia E16.1 Active 58918762 ALLERGIES No Information SOCIAL HISTORY Never Assessed PLAN OF CARE VITAL SIGNS MEDICATIONS Medication Instructions Dosage Frequency Start Date End Date Duration Status Methylphenidate HCl 10 mg Orally in the morning for ADHD 1 tablet on an empty stomach Aug, 28 days Active Concerta 54 MG Orally Once a day for ADHD 1 tablet in the morning Aug 28 days Active RESULTS No Results PROCEDURES [...]
--- OUTSIDE RECORDS SUMMARY | 2017-03-15 14:34 | XMS REPORT | Continuity of Care Document ---
Author Author [facility] Address Unknown Phone Unavailable Allergies Active Description Code Type Severity Reaction Onset Reported/Identified Relationship to Patient Clinical Status Yes Sulfa (Sulfonamide Antibiotics) Drug Allergy N/A N/A 02/12/2009 Yes sulfa drug Drug Allergy 02/12/2009 Yes Sulfa (Sulfonamide Antibiotics) [id number] Drug Allergy Unknown N/A 2009 Yes Abilify 10 mg tablet Drug Allergy N/A N/A 11/07/2012 Yes cephalexin [id number] Drug Allergy Unknown N/A 01/30/2015 Medications There is no data. Problems Date Dx Coded Attending Type Code Diagnosis Diagnosed By 02/12/2009 599.0 URINARY TRACT INFECTION 02/12/2009 784.0 headache 02/12/2009 REID BILL APRN S 599.0 Urinary Tract Infection 02/12/2009 REID BILL APRN S 784.0 Headache 02/12/2009 599.0 Urinary Tract Infection 02/12/2009 784.0 Headache 02/12/2009 599.0 Urinary Tract Infection 02/12/2009 784.0 Headache 02/12/2009 599.0 Urinary Tract Infection 02/12/2009 784.0 Headache 02/12/2009 HUNTER ARBOLEDA APRN 599.0 Urinary Tract Infection 02/12/2009 HUNTER ARBOLEDA APRN 784.0 Headache 02/12/2009 STELLA PARK CHRISTEN R 599.0 Urinary Tract Infection 02/12/2009 STELLA PARK CHRISTEN R 784.0 Headache 02/12/2009 DOMINGUEZ QUINTON ERVINA K 599.0 Urinary Tract Infection 02/12/2009 DOMINGUEZ DO BENTON K 784.0 Headache 02/12/2009 HUNTER ARBOLEDA APRN 599.0 Urinary Tract Infection 02/12/2009 HUNTER ARBOLEDA APRN 784.0 Headache 02/12/2009 HUNTER ARBOLEDA APRN D 599.0 Urinary Tract Infection 02/12/2009 HUNTER ARBOLEDA APRN D 784.0 Headache 02/12/2009 DIONISIO MINA, NINA N 599.0 Urinary Tract Infection 02/12/2009 DIONISIO MINA, NINA N 784.0 Headache 02/12/2009 CHEO AUDITING SPECIALIST, PORTIA J 599.0 Urinary Tract Infection 02/12/2009 CHEO AUDITING SPECIALIST, PORTIA J 784.0 Headache 02/12/2009 CHEO AUDITING SPECIALIST, PORTIA J 599.0 Urinary Tract Infection 02/12/2009 CHEO AUDITING SPECIALIST, PORTIA J 784.0 Headache 02/12/2009 CHEO AUDITING SPECIALIST, PORTIA J 599.0 Urinary Tract Infection 02/12/2009 CHEO AUDITING SPECIALIST, PORTIA J 784.0 Headache 02/12/2009 CHEO AUDITING SPECIALIST, PORTIA J 599.0 Urinary Tract Infection 02/12/2009 CHEO AUDITING SPECIALIST, PORTIA J 784.0 Headache 02/12/2009 CHEO AUDITING SPECIALIST, PORTIA J 599.0 Urinary Tract Infection 02/12/2009 CHEO AUDITING SPECIALIST, PORTIA J 784.0 Headache 02/12/2009 CHEO AUDITING SPECIALIST, PORITA J 599.0 Urinary Tract Infection 02/12/2009 CHEO AUDITING SPECIALIST, PORTIA J 784.0 Headache 02/12/2009 CHEO AUDITING SPECIALIST, PORTIA J 599.0 Urinary Tract Infection 02/12/2009 CHEO AUDITING SPECIALIST, PORTIA J 784.0 Headache 02/12/2009 CHEO AUDITING SPECIALIST, PORTIA J 599.0 Urinary Tract Infection 02/12/2009 CHEO AUDITING SPECIALIST, PORTIA J 784.0 Headache 02/22/2009 788.41 urinary frequency increased 02/22/2009 REID BILL APRN 788.41 Urinary Frequency Increased 02/22/2009 788.41 Urinary Frequency Increased 02/22/2009 788.41 Urinary Frequency Increased 02/22/2009 788.41 Urinary Frequency Increased 02/22/2009 HUNTER ARBOLEDA APRN 788.41 Urinary Frequency Increased 02/22/2009 CHRISTEN DOUGLAS APRN 788.41 Urinary Frequency Increased 02/22/2009 BENTON DOMINGUEZ DO K 788.41 Urinary Frequency Increased 02/22/2009 HUNTER ARBOLEDA APRN 788.41 Urinary Frequency Increased 02/22/2009 HUNTER ARBOLEDA APRN 788.41 Urinary Frequency Increased 02/22/2009 NINA NICHOLE MD 788.41 Urinary Frequency Increased 02/22/2009 CHEO AUDITING SPECIALIST, PORTIA J 788.41 Urinary Frequency Increased 02/22/2009 CHEO AUDITING SPECIALIST, PORTIA J 788.41 Urinary Frequency Increased 02/22/2009 CHEO AUDITING SPECIALIST, PORTIA J 788.41 Urinary Frequency Increased 02/22/2009 CHEO AUDITING SPECIALIST, PORTIA J 788.41 Urinary Frequency Increased 02/22/2009 CHEO AUDITING SPECIALIST, PORTIA J 788.41 Urinary Frequency Increased 02/22/2009 HCEO AUDITING SPECIALIST, PORTIA J 788.41 Urinary Frequency Increased 02/22/2009 CHEO AUDITING SPECIALIST, PORTIA J 788.41 Urinary Frequency Increased 02/22/2009 CHEO AUDITING SPECIALIST, PORTIA J 788.41 Urinary Frequency Increased 03/18/2009 616.10 VAGINITIS VULVOVAGINITIS UNSPECIFIED 03/18/2009 625.6 STRESS INCONTINENCE FEMALE 03/18/2009 REID BILL APRN 616.10 Vaginitis Vulvovaginitis Unspecified 03/18/2009 REID BILL APRN S 625.6 Stress Incontinence Female 03/18/2009 616.10 Vaginitis Vulvovaginitis Unspecified 03/18/2009 625.6 Stress Incontinence Female 03/18/2009 616.10 Vaginitis Vulvovaginitis Unspecified 03/18/2009 625.6 Stress Incontinence Female 03/18/2009 616.10 Vaginitis Vulvovaginitis Unspecified 03/18/2009 625.6 Stress Incontinence Female 03/18/2009 HUNTER ARBOLEDA APRN 616.10 Vaginitis Vulvovaginitis Unspecified 03/18/2009 HUNTER ARBOLEDA APRN 625.6 Stress Incontinence Female 03/18/2009 CHRISTEN DOUGLAS APRN 616.10 Vaginitis Vulvovaginitis Unspecified 03/18/2009 STELLA AUDITING SPECIALIST, CHRISTEN R 625.6 Stress Incontinence Female 03/18/2009 BENTON DOMINGUEZ DO 616.10 Vaginitis Vulvovaginitis Unspecified 03/18/2009 BENTON DOMINGUEZ DO K 625.6 Stress Incontinence Female 03/18/2009 HUNTER ARBOLEDA APRN 616.10 Vaginitis Vulvovaginitis Unspecified 03/18/2009 HUNTER ARBOLEDA APRN 625.6 Stress Incontinence Female 03/18/2009 HUNTER ARBOLEDA APRN 616.10 Vaginitis Vulvovaginitis Unspecified 03/18/2009 HUNTER ARBOLEDA APRN 625.6 Stress Incontinence Female 03/18/2009 NINA NICHOLE MD 616.10 Vaginitis Vulvovaginitis Unspecified 03/18/2009 NINA NICHOLE MD N 625.6 Stress Incontinence Female 03/18/2009 CHEO PARK PORTIA J 616.10 Vaginitis Vulvovaginitis Unspecified 03/18/2009 PORTIA GRIDER APRN J 625.6 Stress Incontinence Female 03/18/2009 [place]O PARK, PORTIA J 616.10 Vaginitis Vulvovaginitis Unspecified 03/18/2009 SEAMUS GRIDER APRNA J 625.6 Stress Incontinence Female 03/18/2009 HANNAH GRIDER APRNINDA J 616.10 Vaginitis Vulvovaginitis Unspecified 03/18/2009 CHEO PARK PORTIA J 625.6 Stress Incontinence Female 03/18/2009 [place]O [place], PORTIA J 616.10 Vaginitis Vulvovaginitis Unspecified 03/18/2009 CHEO PARK, PORTIA J 625.6 Stress Incontinence Female 03/18/2009 CHEO PARK, PORTIA J 616.10 Vaginitis Vulvovaginitis Unspecified 03/18/2009 CHEO PARK PORTIA J 625.6 Stress Incontinence Female 03/18/2009 CHEO PARK PORTIA J 616.10 Vaginitis Vulvovaginitis Unspecified 03/18/2009 CHEO PARK PORTIA J 625.6 Stress Incontinence Female 03/18/2009 CHEO PARK PORTIA J 616.10 Vaginitis Vulvovaginitis Unspecified 03/18/2009 PORTIA GRIDER APRN 625.6 Stress Incontinence Female 03/18/2009 PORTIA GRIDER APRN 616.10 Vaginitis Vulvovaginitis Unspecified 03/18/2009 PORTIA GRIDER APRN 625.6 Stress Incontinence Female 06/11/2009 611.71 MASTODYNIA LEFT 06/11/2009 REID BILL APRN 611.71 Mastodynia Left 06/11/2009 611.71 Mastodynia Left 06/11/2009 611.71 Mastodynia Left 06/11/2009 611.71 Mastodynia Left 06/11/2009 HUNTER ARBOLEDA APRN 611.71 Mastodynia Left 06/11/2009 CHRISTEN DOULGAS APRN 611.71 Mastodynia Left 06/11/2009 BENTON DOMINGUEZ DO 611.71 Mastodynia Left 06/11/2009 HUNTER ARBOLEDA APRN 611.71 Mastodynia Left 06/11/2009 HUNTER ARBOLEDA APRN 611.71 Mastodynia Left 06/11/2009 NINA NICHOLE MD 611.71 Mastodynia Left 06/11/2009 PORTIA GRIDER APRN 611.71 Mastodynia Left 06/11/2009 PORTIA GRIDER APRN 611.71 Mastodynia Left 06/11/2009 PORTIA GRIDER APRN 611.71 Mastodynia Left 06/11/2009 PORTIA GRIDER APRN 611.71 Mastodynia Left 06/11/2009 PORTIA GRIDER APRN 611.71 Mastodynia Left 06/11/2009 PORTIA GRIDER APRN 611.71 Mastodynia Left 06/11/2009 PORTIA GRIDER APRN 611.71 Mastodynia Left 06/11/2009 PORTIA GRIDER APRN 611.71 Mastodynia Left 07/31/2009 Ot 648.93 07/31/2009 Ot 922.2 07/31/2009 Ot E000.8 07/31/2009 Ot E030 07/31/2009 Ot E849.0 07/31/2009 Ot E917.9 09/17/2009 Ot V89.01 10/22/2009 Ot 646.83 10/22/2009 Ot 780.4 11/10/2009 Ot 008.8 11/10/2009 Ot 276.51 11/10/2009 Ot 646.83 11/10/2009 Ot 647.83 12/12/2009 Ot 644.03 01/18/2010 Ot 644.03 01/23/2010 Ot 644.03 01/23/2010 Ot 648.73 01/23/2010 Ot 724.5 01/23/2010 Ot 644.13 01/31/2010 Ot 285.9 ANEMIA NOS 01/31/2010 Ot 648.22 ANEMIA- DELIVERED W P/P 01/31/2010 Ot 648.91 OTH CURR COND-DELIVERED 01/31/2010 Ot 659.71 ABN DEL FET HT RT/RHYTHM,W OR W/O MENTIO 01/31/2010 Ot V02.51 GROUP B STREPT CARRIER/SUSPECTED CARRIER 01/31/2010 Ot V06.1 DIPHTHERIA- TETANUS-PERTUSSIS, COMBINED [ 01/31/2010 Ot V27.0 DELIVER- SINGLE LIVEBORN 02/06/2010 Ot 789.00 02/06/2010 Ot 998.12 07/22/2010 616.0 CERVICITIS 07/22/2010 625.9 PELVIC PAIN 07/22/2010 V72.31 GROMMET WORKER EXAM, ROUTINE 07/22/2010 REID BILL APRN 616.0 Cervicitis 07/22/2010 REID BILL APRN 625.9 Pelvic Pain 07/22/2010 REID BILL APRN V72.31 Training Mgr Exam, Routine 07/22/2010 616.0 Cervicitis 07/22/2010 625.9 Pelvic Pain 07/22/2010 V72.31 Training Mgr Exam, Routine 07/22/2010 616.0 Cervicitis 07/22/2010 625.9 Pelvic Pain 07/22/2010 V72.31 Training Mgr Exam, Routine 07/22/2010 616.0 Cervicitis 07/22/2010 625.9 Pelvic Pain 07/22/2010 V72.31 Training Mgr Exam, Routine 07/22/2010 HUNTER ARBOLEDA APRN 616.0 Cervicitis 07/22/2010 HUNTER ARBOLEDA APRN 625.9 Pelvic Pain 07/22/2010 HUNTER ARBOLEDA APRN V72.31 Training Mgr Exam, Routine 07/22/2010 STELLA AUDITING SPECIALIST, CHRISTEN R 616.0 Cervicitis 07/22/2010 STELLA AUDITING SPECIALIST, CHRISTEN R 625.9 Pelvic Pain 07/22/2010 STELLA AUDITING SPECIALIST CHRISTEN R V72.31 Training Mgr Exam, Routine 07/22/2010 DOMINGUEZ DO, BENTON K 616.0 Cervicitis 07/22/2010 DOMINGUEZ DO, BENTON K 625.9 Pelvic Pain 07/22/2010 DOMINGUEZ DO, BENTON K V72.31 Training Mgr Exam, Routine 07/22/2010 HUNTER ARBOLEDA APRN 616.0 Cervicitis 07/22/2010 HUNTER ARBOLEDA APRN 625.9 Pelvic Pain 07/22/2010 HUNTER ARBOLEDA APRN V72.31 Training Mgr Exam, Routine 07/22/2010 HUNTER ARBOLEDA APRN 616.0 Cervicitis 07/22/2010 HUNTER ARBOLEDA APRN 625.9 Pelvic Pain 07/22/2010 HUNTER ARBOLEDA APRN V72.31 Training Mgr Exam, Routine 07/22/2010 NINA NICHOLE MD N 616.0 Cervicitis 07/22/2010 NINA NICHOLE MD N 625.9 Pelvic Pain 07/22/2010 NINA NICHOLE MD V72.31 Training Mgr Exam, Routine 07/22/2010 CHEO PARK PORTIA J 616.0 Cervicitis 07/22/2010 CHEO P[place] PORTIA J 625.9 Pelvic Pain 07/22/2010 CHEO PARK PORTIA J V72.31 Training Mgr Exam, Routine 07/22/2010 [place]O [place], PORTIA J 616.0 Cervicitis 07/22/2010 CHEO AUDITING SPECIALIST, PORTIA J 625.9 Pelvic Pain 07/22/2010 [place]O [place]ARK, PORTIA J V72.31 Training Mgr Exam, Routine 07/22/2010 CHEO PARK, PORTIA J 616.0 Cervicitis 07/22/2010 CHEO PARK, PORTIA J 625.9 Pelvic Pain 07/22/2010 CHEO PARK, PORTIA J V72.31 Training Mgr Exam, Routine 07/22/2010 CHEO PARK PORTIA J 616.0 Cervicitis 07/22/2010 CHEO AUDITING SPECIALIST, PORTIA J 625.9 Pelvic Pain 07/22/2010 CHEO AUDITING SPECIALIST, PORTIA J V72.31 Training Mgr Exam, Routine 07/22/2010 CHEO AUDITING SPECIALIST, PORTIA J 616.0 Cervicitis 07/22/2010 CHEO AUDITING SPECIALIST, PORTIA J 625.9 Pelvic Pain 07/22/2010 CHEO AUDITING SPECIALIST, PORTIA J V72.31 Training Mgr Exam, Routine 07/22/2010 CHEO AUDITING SPECIALIST, PORTIA J 616.0 Cervicitis 07/22/2010 CHEO AUDITING SPECIALIST, PORTIA J 625.9 Pelvic Pain 07/22/2010 CHEO AUDITING SPECIALIST, PORTIA J V72.31 Training Mgr Exam, Routine 07/22/2010 CHEO AUDITING SPECIALIST, PORTIA J 616.0 Cervicitis 07/22/2010 CHEO AUDITING SPECIALIST, PORTIA J 625.9 Pelvic Pain 07/22/2010 CHEO AUDITING SPECIALIST, PORTIA J V72.31 Training Mgr Exam, Routine 07/22/2010 CHEO AUDITING SPECIALIST, PORTIA J 616.0 Cervicitis 07/22/2010 CHEO AUDITING SPECIALIST, PORTIA J 625.9 Pelvic Pain 07/22/2010 CHEO AUDITING SPECIALIST, PORTIA J V72.31 Training Mgr Exam, Routine 01/18/2011 Ot 558.9 NONINF GASTROENTERIT NEC 01/18/2011 Ot 787.01 NAUSEA WITH VOMITING 06/22/2011 296.90 MOOD DISORDER 06/22/2011 799.22 IRRITIBILITY 06/22/2011 REID BILL APRN 296.90 Mood Disorder 06/22/2011 REID BILL APRN 799.22 IRRITIBILITY 06/22/2011 296.90 Mood Disorder 06/22/2011 799.22 IRRITIBILITY 06/22/2011 296.90 Mood Disorder 06/22/2011 799.22 IRRITIBILITY 06/22/2011 296.90 Mood Disorder 06/22/2011 799.22 IRRITIBILITY 06/22/2011 HUNTER AROBLEDA APRN 296.90 Mood Disorder 06/22/2011 HUNTER ARBOLEDA APRN 799.22 IRRITIBILITY 06/22/2011 STELLA AUDITING SPECIALIST, CHRISTEN R 296.90 Mood Disorder 06/22/2011 STELLA AUDITING SPECIALIST, CHRISTEN R 799.22 IRRITIBILITY 06/22/2011 DOMINGUEZ DO, BENTON K 296.90 Mood Disorder 06/22/2011 DOMINGUEZ DO, BENTON K 799.22 IRRITIBILITY 06/22/2011 HUNTER ARBOLEDA APRN 296.90 Mood Disorder 06/22/2011 HUNTER ARBOLEDA APRN 799.22 IRRITIBILITY 06/22/2011 HUNTER ARBOLEDA APRN 296.90 Mood Disorder 06/22/2011 HUNTER ARBOLEDA APRN 799.22 IRRITIBILITY 06/22/2011 NINA NICHOLE MD N 296.90 Mood Disorder 06/22/2011 NINA NICHOLE MD 799.22 IRRITIBILITY 06/22/2011 CHEO PARK, PORTIA J 296.90 Mood Disorder 06/22/2011 [place], PORTIA J 799.22 IRRITIBILITY 06/22/2011 HANNAH GRIDER APRNINDA J 296.90 Mood Disorder 06/22/2011 [place], PORTIA J 799.22 IRRITIBILITY 06/22/2011 [place], PORTIA J 296.90 Mood Disorder 06/22/2011 [place], PORTIA J 799.22 IRRITIBILITY 06/22/2011 CHEO P[place], PORTIA J 296.90 Mood Disorder 06/22/2011 CHEO PARK, PORTIA J 799.22 IRRITIBILITY 06/22/2011 [place]O [place], PORTIA J 296.90 Mood Disorder 06/22/2011 CHEO P[place], PORTIA J 799.22 IRRITIBILITY 06/22/2011 [place], PORTIA J 296.90 Mood Disorder 06/22/2011 CHEO PARK PORTIA J 799.22 IRRITIBILITY 06/22/2011 [place], PORTIA J 296.90 Mood Disorder 06/22/2011 [place], PORTIA J 799.22 IRRITIBILITY 06/22/2011 [place] PARK PORTIA J 296.90 Mood Disorder 06/22/2011 CHEO PARK PORTIA J 799.22 IRRITIBILITY 09/06/2011 611.79 OTHER SIGNS AND SYMPTOMS IN BREAST 09/06/2011 780.99 ANHEDONIA 09/06/2011 REID BILL APRN S 611.79 Other Signs And Symptoms In Breast 09/06/2011 REID BILL APRN S 780.99 ANHEDONIA 09/06/2011 611.79 Other Signs And Symptoms In Breast 09/06/2011 780.99 ANHEDONIA 09/06/2011 611.79 Other Signs And Symptoms In Breast 09/06/2011 780.99 ANHEDONIA 09/06/2011 611.79 Other Signs And Symptoms In Breast 09/06/2011 780.99 ANHEDONIA 09/06/2011 HUNTER ARBOLEDA APRN 611.79 Other Signs And Symptoms In Breast 09/06/2011 HUNTER ARBOLEDA APRN 780.99 ANHEDONIA 09/06/2011 CLAY DOUGLAS APRNINA R 611.79 Other Signs And Symptoms In Breast 09/06/2011 STELLA PARK CHRISTEN R 780.99 ANHEDONIA 09/06/2011 QUINTON DOMINGUEZ DOA K 611.79 Other Signs And Symptoms In Breast 09/06/2011 DOMINGUEZ DOQUINTONA K 780.99 ANHEDONIA 09/06/2011 HUNTER ARBOLEDA APRN 611.79 Other Signs And Symptoms In Breast 09/06/2011 HUNTER ARBOLEDA APRN 780.99 ANHEDONIA 09/06/2011 HUNTER ARBOLEDA APRN 611.79 Other Signs And Symptoms In Breast 09/06/2011 HUNTER ARBOLEDA APRN 780.99 ANHEDONIA 09/06/2011 NINA NICHOLE MD 611.79 Other Signs And Symptoms In Breast 09/06/2011 NINA NICHOLE MD 780.99 ANHEDONIA 09/06/2011 PORTIA GRIDER APRN 611.79 Other Signs And Symptoms In Breast 09/06/2011 PORTIA GRIDER APRN 780.99 ANHEDONIA 09/06/2011 PORTIA GRIDER APRN 611.79 Other Signs And Symptoms In Breast 09/06/2011 PORTIA GRIDER APRN 780.99 ANHEDONIA 09/06/2011 PORTIA GRIDER APRN 611.79 Other Signs And Symptoms In Breast 09/06/2011 CHEO AUDITING SPECIALIST, PORTIA J 780.99 ANHEDONIA 09/06/2011 CHEO AUDITING SPECIALIST, PORTIA J 611.79 Other Signs And Symptoms In Breast 09/06/2011 CHEO AUDITING SPECIALIST, PORTIA J 780.99 ANHEDONIA 09/06/2011 CHEO AUDITING SPECIALIST, PORTIA J 611.79 Other Signs And Symptoms In Breast 09/06/2011 CHEO AUDITING SPECIALIST, PORTIA J 780.99 ANHEDONIA 09/06/2011 CHEO AUDITING SPECIALIST, PORTIA J 611.79 Other Signs And Symptoms In Breast 09/06/2011 CHEO AUDITING SPECIALIST, PORTIA J 780.99 ANHEDONIA 09/06/2011 CHEO AUDITING SPECIALIST, PORTIA J 611.79 Other Signs And Symptoms In Breast 09/06/2011 CHEO AUDITING SPECIALIST, PORTIA J 780.99 ANHEDONIA 09/06/2011 CHEO AUDITING SPECIALIST, PORTIA J 611.79 Other Signs And Symptoms In Breast 09/06/2011 CHEO AUDITING SPECIALIST, PORTIA J 780.99 ANHEDONIA 11/01/2011 112.1 CANDIDIASIS OF VULVA AND VAGINA 11/01/2011 V76.19 OTHER SCREENING BREAST EXAMINATION 11/01/2011 V76.2 CERVICAL CANCER SCREENING (PAP SMEAR) 11/01/2011 REID BILL APRN 112.1 Candidiasis Of Vulva And Vagina 11/01/2011 REID BILL APRN V76.19 Other Screening Breast Examination 11/01/2011 REID BILL APRN V76.2 Cervical Cancer Screening (pap Smear) 11/01/2011 112.1 Candidiasis Of Vulva And Vagina 11/01/2011 V76.19 Other Screening Breast Examination 11/01/2011 V76.2 Cervical Cancer Screening (pap Smear) 11/01/2011 112.1 Candidiasis Of Vulva And Vagina 11/01/2011 V76.19 Other Screening Breast Examination 11/01/2011 V76.2 Cervical Cancer Screening (pap Smear) 11/01/2011 112.1 Candidiasis Of Vulva And Vagina 11/01/2011 V76.19 Other Screening Breast Examination 11/01/2011 V76.2 Cervical Cancer Screening (pap Smear) 11/01/2011 HUNTER ARBOLEDA APRN 112.1 Candidiasis Of Vulva And Vagina 11/01/2011 HUNTER ARBOLEDA APRN V76.19 Other Screening Breast Examination 11/01/2011 HUNTER ARBOLEDA APRN V76.2 Cervical Cancer Screening (pap Smear) 11/01/2011 CHRISTEN DOUGLAS APRN R 112.1 Candidiasis Of Vulva And Vagina 11/01/2011 CHRISTEN DOUGLAS APRN R V76.19 Other Screening Breast Examination 11/01/2011 CHRISTEN DOUGLAS APRN R V76.2 Cervical Cancer Screening (pap Smear) 11/01/2011 QUINTON DOMINGUEZ DOA K 112.1 Candidiasis Of Vulva And Vagina 11/01/2011 DOMINGUEZ QUINTON ERVINA K V76.19 Other Screening Breast Examination 11/01/2011 ODMINGUEZ QUINTON ERVINA K V76.2 Cervical Cancer Screening (pap Smear) 11/01/2011 HUNTER ARBOLEDA APRN 112.1 Candidiasis Of Vulva And Vagina 11/01/2011 HUNTER ARBOLEDA APRN V76.19 Other Screening Breast Examination 11/01/2011 HUNTER ARBOLEDA APRN V76.2 Cervical Cancer Screening (pap Smear) 11/01/2011 HUNTER ARBOLEDA APRN 112.1 Candidiasis Of Vulva And Vagina 11/01/2011 HUNTER ARBOLEDA APRN V76.19 Other Screening Breast Examination 11/01/2011 HUNTER ARBOLEDA APRN V76.2 Cervical Cancer Screening (pap Smear) 11/01/2011 NINA NICHOLE MD 112.1 Candidiasis Of Vulva And Vagina 11/01/2011 NINA NICHOLE MD V76.19 Other Screening Breast Examination 11/01/2011 NINA NICHOLE MD V76.2 Cervical Cancer Screening (pap Smear) 11/01/2011 PORTIA GRIDER APRN 112.1 Candidiasis Of Vulva And Vagina 11/01/2011 PORTIA GRIDER APRN V76.19 Other Screening Breast Examination 11/01/2011 PORTIA GRIDER APRN V76.2 Cervical Cancer Screening (pap Smear) 11/01/2011 PORTIA GRIDER APRN 112.1 Candidiasis Of Vulva And Vagina 11/01/2011 PORTIA GRIDER APRN V76.19 Other Screening Breast Examination 11/01/2011 PORTIA GRIDER APRN V76.2 Cervical Cancer Screening (pap Smear) 11/01/2011 PORTIA GRIDER APRN J 112.1 Candidiasis Of Vulva And Vagina 11/01/2011 PORTIA GRIDER APRN V76.19 Other Screening Breast Examination 11/01/2011 PORTIA GRIDER APRN V76.2 Cervical Cancer Screening (pap Smear) 11/01/2011 PORTIA GRIDER APRN 112.1 Candidiasis Of Vulva And Vagina 11/01/2011 PORTIA GRIDER APRN V76.19 Other Screening Breast Examination 11/01/2011 PORTIA GRIDER APRN V76.2 Cervical Cancer Screening (pap Smear) 11/01/2011 PORTIA GRIDER APRN 112.1 Candidiasis Of Vulva And Vagina 11/01/2011 PORTIA GRIDER APRN V76.19 Other Screening Breast Examination 11/01/2011 PORTIA GRIDER APRN V76.2 Cervical Cancer Screening (pap Smear) 11/01/2011 PORTIA GRIDER APRN 112.1 Candidiasis Of Vulva And Vagina 11/01/2011 PORTIA GRIDER APRN V76.19 Other Screening Breast Examination 11/01/2011 PORTIA GRIDER APRN V76.2 Cervical Cancer Screening (pap Smear) 11/01/2011 PORTIA GRIDER APRN 112.1 Candidiasis Of Vulva And Vagina 11/01/2011 PORTIA GRIDER APRN V76.19 Other Screening Breast Examination 11/01/2011 PORTIA GRIDER APRN V76.2 Cervical Cancer Screening (pap Smear) 11/01/2011 PORTIA GRIDER APRN 112.1 Candidiasis Of Vulva And Vagina 11/01/2011 PORTIA GRIDER APRN V76.19 Other Screening Breast Examination 11/01/2011 PORTIA GRIDER APRN V76.2 Cervical Cancer Screening (pap Smear) 01/25/2012 733.6 TIETZE'S DISEASE 01/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 REID BILL APRN 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/2012 HUNTER ARBOLEDA APRN 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/2012 CHRISTEN DOUGLAS APRN R 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/2012 BENTON DOMINGUEZ DO 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/2012 HUNTER ARBOLEDA APRN 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/2012 HUNTER ARBOLEDA APRN 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/2012 NINA NICHOLE MD 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/2012 [place] P[place], PORTIA J 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/2012 [place], PORTIA J 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/2012 [place] PORTIA J 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/2012 [place] PORTIA J 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/2012 [place], PORTIA J 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/2012 [place], PORTIA J 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/2012 [place], PORTIA J 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/2012 [place], PORTIA J 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/2012 626.9 MENSTRUATION AND OTHER ABNORMAL BLEEDING FROM FEMALE GENITAL TRACT 04/06/2012 REID BILL APRN 626.9 Menstruation And Other Abnormal Bleeding From Female Genital Tract 07/17/2012 782.0 numbness of both hands 07/17/2012 782.0 numbness of both hands 07/17/2012 782.0 numbness of both hands 07/17/2012 HUNTER ARBOLEDA APRN 782.0 numbness of both hands 07/17/2012 CHRISTEN DOUGLAS APRN 782.0 numbness of both hands 07/17/2012 BENTON DOMINGUEZ DO 782.0 numbness of both hands 07/17/2012 HUNTER ARBOLEDA APRN 782.0 numbness of both hands 07/17/2012 HUNTER ARBOLEDA APRN 782.0 numbness of both hands 07/17/2012 NINA NICHOLE MD 782.0 numbness of both hands 07/17/2012 [place], PORTIA J 782.0 numbness of both hands 07/17/2012 [place], PORTIA J 782.0 numbness of both hands 07/17/2012 [place], PORTIA J 782.0 numbness of both hands 07/17/2012 CHEO AUDITING SPECIALIST, PORTIA J 782.0 numbness of both hands 07/17/2012 [place], PORTIA J 782.0 numbness of both hands 07/17/2012 [place], PORTIA J 782.0 numbness of both hands 07/17/2012 [place] P[place], PORTIA J 782.0 numbness of both hands 07/17/2012 [place], PORTIA J 782.0 numbness of both hands 07/17/2012 Ot 780.60 FEVER, UNSPECIFIED 07/17/2012 Ot 787.03 VOMITING ALONE 07/17/2012 626.9 Menstruation And Other Abnormal Bleeding From Female Genital Tract 09/02/2012 626.9 Menstruation And Other Abnormal Bleeding From Female Genital Tract 10/31/2012 626.9 Menstruation And Other Abnormal Bleeding From Female Genital Tract 01/02/2013 HUNTER ARBOLEDA APRN 626.9 Menstruation And Other Abnormal Bleeding From Female Genital Tract 03/20/2013 CHRISTEN DOUGLAS APRN V70.0 EXAM - ROUTINE H&P 03/20/2013 BENTON DOMINGUEZ DO V70.0 EXAM - ROUTINE H&P 03/20/2013 HUNTER ARBOLEDA APRN V70.0 EXAM - ROUTINE H&P 03/20/2013 HUNTER ARBOLEDA APRN V70.0 EXAM - ROUTINE H&P 03/20/2013 NINA NICHOLE MD V70.0 EXAM - ROUTINE H&P 03/20/2013 PORTIA GRIDER APRN V70.0 EXAM - ROUTINE H&P 03/20/2013 PORTIA GRIDER APRN V70.0 EXAM - ROUTINE H&P 03/20/2013 CHEO PARK, PORTIA J V70.0 EXAM - ROUTINE H&P 03/20/2013 CHEO AUDITING SPECIALIST, PORTIA J V70.0 EXAM - ROUTINE H&P 03/20/2013 CHEO AUDITING SPECIALIST, PORTIA J V70.0 EXAM - ROUTINE H&P 03/20/2013 CHEO AUDITING SPECIALIST, PORTIA J V70.0 EXAM - ROUTINE H&P 03/20/2013 CHEO AUDITING SPECIALIST, PORTIA J V70.0 EXAM - ROUTINE H&P 03/20/2013 CHEO AUDITING SPECIALIST, PORTIA J V70.0 EXAM - ROUTINE H&P 03/20/2013 CHRISTEN DOUGLAS APRN R 626.9 Menstruation And Other Abnormal Bleeding From Female Genital Tract 03/29/2013 BENTON DOMINGUEZ DO 626.9 Menstruation And Other Abnormal Bleeding From Female Genital Tract 06/12/2013 HUNTER ARBOLEDA APRN 296.90 MOOD DISORDER NOS 06/12/2013 HUNTER RABOLEDA APRN 296.90 MOOD DISORDER NOS 06/12/2013 DIONISIO MINA, NINA Aggarwal 296.90 MOOD DISORDER NOS 06/12/2013 CHEO PARK, PORTIA J 296.90 MOOD DISORDER NOS 06/12/2013 CHEO PARK, PORTIA J 296.90 MOOD DISORDER NOS 06/12/2013 CHEO PARK, PORTIA J 296.90 MOOD DISORDER NOS 06/12/2013 CHEO PARK, PORTIA J 296.90 MOOD DISORDER NOS 06/12/2013 CHEO PARK, PORTIA J 296.90 MOOD DISORDER NOS 06/12/2013 CHEO PARK PORTIA J 296.90 MOOD DISORDER NOS 06/12/2013 CHEO PARK, PORTIA J 296.90 MOOD DISORDER NOS 06/12/2013 CHEO PARK, PORTIA J 296.90 MOOD DISORDER NOS 07/03/2013 HUNTER ARBOLEDA APRN 626.9 Menstruation And Other Abnormal Bleeding From Female Genital Tract 07/28/2013 HUNTER ARBOLEDA APRN 626.9 Menstruation And Other Abnormal Bleeding From Female Genital Tract 09/14/2013 MELYSSA MERRILL MD Ot 924.8 MULTIPLE CONTUSIONS NEC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
[2017-03-15 14:53] LABS: BASOPHILS % (AUTO) 0 % (0-10); EOSINOPHILS % (AUTO) 0 % (0-10); LYMPHOCYTES # (AUTO) 2.1 X 10^3 (1.0-4.0); LYMPHOCYTES % (AUTO) 32 % (12-44); MEAN CORPUSCULAR HEMOGLOBIN 28 PG (25-34); MEAN CORPUSCULAR HGB CONC 33 G/DL (32-36); MEAN CORPUSCULAR VOLUME 85 FL (80-99); MEAN PLATELET VOLUME 10.5 FL (7.4-10.4); MONOCYTES # (AUTO) 0.5 X 10^3 (0.0-1.0); MONOCYTES % (AUTO) 7 % (0-12); NEUTROPHILS % (AUTO) 60 % (42-75); PLATELET COUNT 254 10^3/uL (130-400); RED BLOOD COUNT 4.84 10^6/uL (4.35-5.85); RED CELL DISTRIBUTION WIDTH 13.5 % (10.0-14.5); WHITE BLOOD COUNT 6.6 10^3/uL (4.3-11.0)
--- NOTE | 2017-03-15 14:53 | ED GI ---
General Chief Complaint: Abdominal/GI Problems Stated Complaint: VOMITING AND SYNCOPE Source of Information: Patient Exam Limitations: No Limitations History of Present Illness Time Seen By Provider: 14:51 Initial Comments To ER with reports of nausea vomiting and watery diarrhea without blood or mucus for the past 3-4 days. Abdominal cramping. No abdominal pain. Chills but no measured fever. Passed out once today. Timing/Duration: 1-2 Days Severity/Quality: Moderate, Cramping Location: Generalized Abdomen Radiation: No Radiation Activities at Onset: None Allergies and Home Medications Allergies Coded Allergies: Sulfa (Sulfonamide Antibiotics) (Unverified Allergy, Unknown, 10/22/09) cephalexin (Verified Allergy, Unknown, 01/30/15) Home Medications Clonazepam 1 Mg Tablet, 1 MG PO BID, (Reported) Duloxetine HCl 60 Mg Capsule.dr, 60 MG PO DAILY, (Reported) Lurasidone HCl 60 Mg Tablet, 60 MG PO DAILY, (Reported) Methylphenidate HCl 27 Mg Tab.er.24, Unknown Dose PO, (Reported) Ondansetron 8 Mg Tab.rapdis, 8 MG PO Q6H PRN for NAUSEA/VOMITING-1ST LINE, #10 Prescribed by: KATIA OSBORNE on 01/04/17 1742 Ondansetron 8 Mg Tab.rapdis, (Reported) Sertraline HCl 100 Mg Tablet, (Reported) Review of Systems Constitutional: see HPI EENTM: No Symptoms Reported Respiratory: No Symptoms Reported Cardiovascular: See HPI Gastrointestinal: See HPI, Denies Abdominal Pain, Diarrhea, Nausea, Vomiting 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: No Symptoms Reported Musculoskeletal: no symptoms reported Skin: no symptoms reported Psychiatric/Neurological: No Symptoms Reported Endocrine: No Symptoms Reported Past Ioanoou-Dkqult-Uzjdta Hx Patient Social History Recent Foreign Travel: No Contact w/Someone Who Travel: No Recent Hopitalizations: No Immunizations Up To Date Tetanus Booster (TDap): Unknown Surgeries History of Surgeries: Yes ( d&c x 2) Surgeries: Adenoidectomy, Section, Tonsillectomy, Tubal Ligation Respiratory History of Respiratory Disorde: No Cardiovascular History of Cardiac Disorders: No Neurological History of Neurological Disord: No Reproductive System Hx Reproductive Disorders: No 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 Disorders: UTI-Chronic Gastrointestinal History of Gastrointestinal Di: No Musculoskeletal History of Musculoskeletal Dis: No Endocrine History of Endocrine Disorders: No Cancer History of Cancer: No Psychosocial History of Psychiatric Problem: No Behavioral Health Disorders: Anxiety, Depression Blood Transfusions History of Blood Disorders: No Family Medical History Significant Family History: No Pertinent Family Hx Physical Exam Vital Signs VS - Last 72 Hours, by Label 03/15/17 14:39 Temp 99.2 Pulse 84 Resp 18 B/P (MAP) 83/ Pulse Ox 99 Capillary Refill : General Appearance: WD/WN, no apparent distress HEENT: PERRL/EOMI, normal ENT inspection Neck: non-tender, full range of motion Respiratory: normal breath sounds, no respiratory distress, no accessory muscle use Cardiovascular: regular rate, rhythm, no murmur, No tachycardia Gastrointestinal: normal bowel sounds, non tender, soft, No tenderness Extremities: normal range of motion, non-tender, normal inspection Neurologic/Psychiatric: alert, normal mood/affect, oriented x 3 Skin: normal color, warm/dry Progress/Results/Core Measures Results/Orders Lab Results Laboratory Tests Test 03/15/17 14:46 Range/Units White Blood Count 6.6 4.3-11.0 10^3/uL Red Blood Count 4.84 4.35-5.85 10^6/uL Hemoglobin 13.6 11.5-16.0 G/DL Hematocrit 41 35-52 % Mean Corpuscular Volume 85 80-99 FL Mean Corpuscular Hemoglobin 28 25-34 PG Mean Corpuscular Hemoglobin Concent 33 32-36 G/DL Red Cell Distribution Width 13.5 10.0-14.5 % Platelet Count 254 130-400 10^3/uL Mean Platelet Volume 10.5 H 7.4-10.4 FL Neutrophils (%) (Auto) 60 42-75 % Lymphocytes (%) (Auto) 32 12-44 % Monocytes (%) (Auto) 7 0-12 % Eosinophils (%) (Auto) 0 0-10 % Basophils (%) (Auto) 0 0-10 % Neutrophils # (Auto) 4.0 1.8-7.8 X 10^3 Lymphocytes # (Auto) 2.1 1.0-4.0 X 10^3 Monocytes # (Auto) 0.5 0.0-1.0 X 10^3 Eosinophils # (Auto) 0.0 0.0-0.3 10^3/uL Basophils # (Auto) 0.0 0.0-0.1 10^3/uL Sodium Level 142 135-145 MMOL/L Potassium Level 3.9 3.6-5.0 MMOL/L Chloride Level 107 98-107 MMOL/L Carbon Dioxide Level 26 21-32 MMOL/L Anion Gap 9 5-14 MMOL/L Blood Urea Nitrogen 14 7-18 MG/DL Creatinine 0.99 0.60-1.30 MG/DL Estimat Glomerular Filtration Rate > 60 BUN/Creatinine Ratio 14 Glucose Level 94 70-105 MG/DL Calcium Level 10.0 8.5-10.1 MG/DL Total Bilirubin 0.6 0.1-1.0 MG/DL Aspartate Amino Transf (AST/SGOT) 14 5-34 U/L Alanine Aminotransferase (ALT/SGPT) 18 0-55 U/L Alkaline Phosphatase 45 40-136 U/L Total Protein 7.8 6.4-8.2 GM/DL Albumin 4.7 H 3.2-4.5 GM/DL Lipase 21 8-78 U/L My Orders Orders - KATIA OSBORNE APRN Cbc With Automated Diff (03/15/17 14:42) Comprehensive Metabolic Panel (03/15/17 14:42) Lipase (03/15/17 14:42) Ua Culture If Indicated (03/15/17 14:42) Saline Lock/Iv-Start (03/15/17 14:42) Urine Bedside (03/15/17 14:49) Ns Iv 1000 Ml (Sodium Chloride 0.9%) (03/15/17 15:00) Promethazine Injection (Phenergan Injec (03/15/17 15:00) Medications Given in ED Current Medications Medications Dose Ordered Sig/Denae Route Start Time Stop Time Status Last Admin Dose Admin Promethazine HCl 25 mg ONCE ONCE IVP 03/15/17 15:00 03/15/17 15:01 DC 03/15/17 15:01 25 MG Vital Signs/I&O Vital Sign - Last 12Hours 03/15/17 14:39 Temp 99.2 Pulse 84 Resp 18 B/P (MAP) 83/ Pulse Ox 99 Departure Impression Impression: Primary Impression: Nausea vomiting and diarrhea Disposition: 01 HOME, SELF-CARE Condition: Stable Departure-Patient Inst. Decision time for Depature: 15:22 Referrals: [facility] (PCP/Family) Primary Care Physician Patient Instructions: Nausea and Vomiting, Adult Add. Discharge Instructions: 1. Return earlier for any fevers, abdominal pain, other concerns. Drink plenty of fluids to stay hydrated. Medication as directed. All discharge instructions reviewed with patient and/or family. Voiced understanding. Scripts Promethazine HCl (Promethazine Tablet) 25 Mg Tablet 25 MG PO Q8H Y for NAUSEA/VOMITING, #14 TAB Prov: KATIA OSBORNE APRN 03/15/17 KATIA OSBORNE APRN Mar 15, 2017 14:53
[2017-03-15] MEDS ORDERED: ONDA8TAB13 (14:57)
[2017-03-15] MEDS ORDERED: SERT100T8 (14:57)
[2017-03-15 14:59] LABS: BILIRUBIN,URINE NEGATIVE (NEGATIVE); KETONES,URINE NEGATIVE (NEGATIVE); LEUKOCYTE ESTERASE ,URINE 1+ (NEGATIVE); NITRITE,URINE NEGATIVE (NEGATIVE); PH,URINE 5 (5-9); PROTEIN,URINE 1+ (NEGATIVE); UROBILINOGEN,URINE NORMAL (NORMAL)
[2017-03-15] MEDS ORDERED: PROMETHAZINE INJ 25 MG/ML (PHENERGAN) AMP IVP ONE (15:00)
[2017-03-15] MEDS ORDERED: NS IV 1000 ML 1,000 ML IV SCH (15:00)
[2017-03-15 15:12] LABS: ALANINE AMINOTRANSFERASE 18 U/L (0-55); ALBUMIN 4.7 GM/DL (3.2-4.5); ANION GAP 9 MMOL/L (5-14); ASPARTATE AMINO TRANSFERASE 14 U/L (5-34); BILIRUBIN,TOTAL 0.6 MG/DL (0.1-1.0); BLOOD UREA NITROGEN 14 MG/DL (7-18); BUN/CREATININE RATIO 14; CARBON DIOXIDE 26 MMOL/L (21-32); CHLORIDE 107 MMOL/L (98-107); CREATININE SERUM 0.99 MG/DL (0.60-1.30); GFR ESTIMATED > 60; GLUCOSE 94 MG/DL (70-105); LIPASE 21 U/L (8-78); POTASSIUM 3.9 MMOL/L (3.6-5.0); SODIUM 142 MMOL/L (135-145); TOTAL PROTEIN 7.8 GM/DL (6.4-8.2)
[2017-03-15] MEDS ORDERED: PROM25TA14 PO (15:24)
[2017-03-15 16:17] VITALS: BP 130/83
== END 2017-03-15 16:17 | disposition home or self-care (01) ==
LOC: EDUNIT# 14:15 → ER 14:17
DX: R11.2 Nausea with vomiting, unspecified (principal); R19.7 Diarrhea, unspecified; F41.9 Anxiety disorder, unspecified; F32.9 Major depressive disorder, single episode, unspecified; Z90.89 Acquired absence of other organs; Z98.51 Tubal ligation status
CPT/HCPCS: 36415; 80053; 81000; 83690; 84703; 85025; 96361; 96374; 99282

== ENCOUNTER 2017-05-26 09:08 | Emergency (ER) | payer SELFPAY ==
[~2017-05-26] VITALS: Ht 167.6 cm; Wt 83.9 kg
[~2017-05-26 09:08] MED LIST changes: +ONDA8TAB13; +PROM25TA14 PO; +SERT100T8
[2017-05-26] MEDS ORDERED: ONDANSETRON 4 MG/2 ML (SDV) Z0FRAN IVP ONE (09:15)
[2017-05-26] MEDS ORDERED: NS IV 1000 ML 1,000 ML IV SCH (09:15)
[2017-05-26] MEDS ORDERED: FAMOTIDINE 20MG/2ML IV (PEPCID) IVP ONE (09:30)
[2017-05-26 09:32] LABS: BASOPHILS % (AUTO) 0 % (0-10); EOSINOPHILS % (AUTO) 0 % (0-10); HEMATOCRIT 41 % (35-52); LYMPHOCYTES # (AUTO) 2.5 X 10^3 (1.0-4.0); LYMPHOCYTES % (AUTO) 32 % (12-44); MEAN CORPUSCULAR HEMOGLOBIN 29 PG (25-34); MEAN CORPUSCULAR HGB CONC 35 G/DL (32-36); MEAN CORPUSCULAR VOLUME 84 FL (80-99); MEAN PLATELET VOLUME 10.9 FL (7.4-10.4); MONOCYTES # (AUTO) 0.4 X 10^3 (0.0-1.0); MONOCYTES % (AUTO) 6 % (0-12); NEUTROPHILS # (AUTO) 4.8 X 10^3 (1.8-7.8); NEUTROPHILS % (AUTO) 62 % (42-75); PLATELET COUNT 263 10^3/uL (130-400); RED BLOOD COUNT 4.81 10^6/uL (4.35-5.85); RED CELL DISTRIBUTION WIDTH 13.6 % (10.0-14.5); WHITE BLOOD COUNT 7.8 10^3/uL (4.3-11.0)
[2017-05-26] MEDS ORDERED: PROMETHAZINE INJ 25 MG/ML (PHENERGAN) AMP ONE (09:47)
[2017-05-26 09:53] LABS: ALANINE AMINOTRANSFERASE 18 U/L (0-55); ALBUMIN 4.7 GM/DL (3.2-4.5); ALKALINE PHOSPHATASE 48 U/L (40-136); BILIRUBIN,TOTAL 0.9 MG/DL (0.1-1.0); BUN/CREATININE RATIO 12; CALCIUM 10.1 MG/DL (8.5-10.1); CARBON DIOXIDE 17 MMOL/L (21-32); CHLORIDE 109 MMOL/L (98-107); GFR ESTIMATED > 60; GLUCOSE 109 MG/DL (70-105); LIPASE 27 U/L (8-78); POTASSIUM 3.8 MMOL/L (3.6-5.0); SODIUM 141 MMOL/L (135-145); TOTAL PROTEIN 8.9 GM/DL (6.4-8.2)
[2017-05-26 10:20] LABS: BILIRUBIN,URINE NEGATIVE (NEGATIVE); CLARITY,URINE CLEAR; COLOR,URINE AMBER; GLUCOSE, URINE (UA) NEGATIVE (NEGATIVE); KETONES,URINE NEGATIVE (NEGATIVE); LEUKOCYTE ESTERASE ,URINE 1+ (NEGATIVE); NITRITE,URINE NEGATIVE (NEGATIVE); PH,URINE 5 (5-9); PROTEIN,URINE NEGATIVE (NEGATIVE); UROBILINOGEN,URINE NORMAL (NORMAL)
[2017-05-26 10:28] LABS: BACTERIA,URINE MODERATE /HPF
[2017-05-26] MEDS ORDERED: NS 1000 ML IV BAG IV ONE (10:30)
[2017-05-26] MEDS ORDERED: CIPROFLOXACIN IV 400MG/200ML 200 ML IV ONE (10:45)
--- NOTE | 2017-05-26 10:50 | Diagnostic Imaging Report ---
INDICATION: Syncope PA and lateral chest Heart size and pulmonary vascularity are normal. Lungs are clear. There are no effusions or pneumothoraces. There is a small calcified granuloma in the left upper lobe unchanged from 01/30/2015. IMPRESSION: No acute abnormalities in the chest Dictated by: Dictated on workstation # [id number]
[2017-05-26] MEDS ORDERED: ANTACID SUSP 30 ML UDC (MYLANTA) PO ONE (11:15)
[2017-05-26] MEDS ORDERED: LIDOCAINE 2% VISCOUS 15 ML UDC PO ONE (11:15)
[2017-05-26 11:33] LABS: AMPHETAMINE SCREEN, URINE NEGATIVE (NEGATIVE); BARBITURATE SCREEN URINE NEGATIVE (NEGATIVE); BENZODIAZEPINES SCREEN URINE NEGATIVE (NEGATIVE); CANNABINOID SCREEN, URINE NEGATIVE (NEGATIVE); COCAINE SCREEN URINE NEGATIVE (NEGATIVE); METHADONE STAT NEGATIVE (NEGATIVE); METHAMPHETAMINE SCREEN URINE S NEGATIVE (NEGATIVE); OPIATE SCREEN URINE NEGATIVE (NEGATIVE); OXYCODONE STAT NEGATIVE (NEGATIVE); PROPOXYPHENE STAT NEGATIVE (NEGATIVE); TRICYCLIC ANTIDEPRESSANTS SCRE NEGATIVE (NEGATIVE)
--- NOTE | 2017-05-26 12:26 | ED General ---
General Chief Complaint: Abdominal/GI Problems Stated Complaint: VOMITING BLOOD,CHEST DISCOMFORT,N/V/F Nursing Triage Note: PT CO OF ABD PAIN, STATES HAS BEEN VOMITING FOR WEEKS, HAS BEEN SEEN AT [facility], PT STATES HAS BLOOD IN VOMIT AT TIMES. STATES HAD TEMP OF 100.0 LAST PM, STATES HAS POSSIBLE ULCER Nursing Sepsis Screen: No Definite Risk Source of Information: Patient Exam Limitations: No Limitations Allergies and Home Medications Allergies Coded Allergies: Sulfa (Sulfonamide Antibiotics) (Unverified Allergy, Unknown, 10/22/09) cephalexin (Verified Allergy, Unknown, 01/30/15) Home Medications Ciprofloxacin HCl 500 Mg Tablet, 500 MG PO BID Prescribed by: CHEVY DOMINGUEZ on 05/26/17 1227 Clonazepam 1 Mg Tablet, 1 MG PO BID, (Reported) Duloxetine HCl 60 Mg Capsule.dr, 60 MG PO DAILY, (Reported) Lurasidone HCl 60 Mg Tablet, 60 MG PO DAILY, (Reported) Ondansetron 8 Mg Tab.rapdis, 8 MG PO Q6H PRN for NAUSEA/VOMITING-1ST LINE Prescribed by: KATIA OSBORNE on 01/04/17 1742 Ondansetron 4 Mg Tab.rapdis, 4 MG SL Q4H Prescribed by: CHEVY DOMINGUEZ on 05/26/17 1227 Promethazine HCl 25 Mg Tablet, 25 MG PO Q8H PRN for NAUSEA/VOMITING Prescribed by: KATIA OSBORNE on 03/15/17 1524 Past Fvaoucr-Wgmuex-Gnkema Hx Patient Social History Alcohol Use: Occasionally Uses Recreational Drug Use: No Smoking Status: Never a Smoker Recent Foreign Travel: No Contact w/Someone Who Travel: No Recent Infectious Disease Expo: No Recent Hopitalizations: No Physical Abuse: No Sexual Abuse: No Immunizations Up To Date Tetanus Booster (TDap): Unknown Surgeries History of Surgeries: Yes ( d&c x 2) Surgeries: Adenoidectomy, Section, Tonsillectomy, Tubal Ligation Respiratory History of Respiratory Disorde: No Cardiovascular History of Cardiac Disorders: No Neurological History of Neurological Disord: No Reproductive System Hx 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 History of 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 Disor: No 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 Disorders: UTI-Chronic Gastrointestinal History of Gastrointestinal Di: No Musculoskeletal History of Musculoskeletal Dis: No Endocrine History of Endocrine Disorders: No Cancer History of Cancer: No Psychosocial History of Psychiatric Problem: No Behavioral Health Disorders: Anxiety, Depression Suicide Risk Score: 0 Integumentary History of Skin or Integumenta: No Blood Transfusions History of Blood Disorders: No Family Medical History Significant Family History: No Pertinent Family Hx Physical Exam Vital Signs Vital Signs - First Documented 05/26/17 09:15 Temp 97.0 Pulse 140 Resp 18 B/P (MAP) 147/106 (120) Pulse Ox 100 Capillary Refill : Less Than 3 Seconds Progress/Results/Core Measures Suspected Sepsis Recent Fever Within 48 Hours: No Infection Criteria Present: None New/Unexplained Altered Menta: No Sepsis Screen: No Definite Risk Sepsis Diagnosis: SIRS Temperature:97.0 Pulse: 140 Respiratory Rate: 18 Laboratory Tests 05/26/17 09:20: White Blood Count 7.8 Blood Pressure 147 /106 Mean: 120 Laboratory Tests 05/26/17 09:20: Creatinine 0.90, Platelet Count 263, Total Bilirubin 0.9 Results/Orders Lab Results Laboratory Tests Test 05/26/17 09:20 05/26/17 10:12 Range/Units White Blood Count 7.8 4.3-11.0 10^3/uL Red Blood Count 4.81 4.35-5.85 10^6/uL Hemoglobin 14.0 11.5-16.0 G/DL Hematocrit 41 35-52 % Mean Corpuscular Volume 84 80-99 FL Mean Corpuscular Hemoglobin 29 25-34 PG Mean Corpuscular Hemoglobin Concent 35 32-36 G/DL Red Cell Distribution Width 13.6 10.0-14.5 % Platelet Count 263 130-400 10^3/uL Mean Platelet Volume 10.9 H 7.4-10.4 FL Neutrophils (%) (Auto) 62 42-75 % Lymphocytes (%) (Auto) 32 12-44 % Monocytes (%) (Auto) 6 0-12 % Eosinophils (%) (Auto) 0 0-10 % Basophils (%) (Auto) 0 0-10 % Neutrophils # (Auto) 4.8 1.8-7.8 X 10^3 Lymphocytes # (Auto) 2.5 1.0-4.0 X 10^3 Monocytes # (Auto) 0.4 0.0-1.0 X 10^3 Eosinophils # (Auto) 0.0 0.0-0.3 10^3/uL Basophils # (Auto) 0.0 0.0-0.1 10^3/uL Sodium Level 141 135-145 MMOL/L Potassium Level 3.8 3.6-5.0 MMOL/L Chloride Level 109 H 98-107 MMOL/L Carbon Dioxide Level 17 L 21-32 MMOL/L Anion Gap 15 H 5-14 MMOL/L Blood Urea Nitrogen 11 7-18 MG/DL Creatinine 0.90 0.60-1.30 MG/DL Estimat Glomerular Filtration Rate > 60 BUN/Creatinine Ratio 12 Glucose Level 109 H 70-105 MG/DL Calcium Level 10.1 8.5-10.1 MG/DL Total Bilirubin 0.9 0.1-1.0 MG/DL Aspartate Amino Transf (AST/SGOT) 14 5-34 U/L Alanine Aminotransferase (ALT/SGPT) 18 0-55 U/L Alkaline Phosphatase 48 40-136 U/L Troponin I < 0.30 <0.30 NG/ML Total Protein 8.9 H 6.4-8.2 GM/DL Albumin 4.7 H 3.2-4.5 GM/DL Lipase 27 8-78 U/L Serum Test, Qualitative NEGATIVE NEGATIVE Serum Alcohol < 10 <10 MG/DL Urine Color ANGELA H Urine Clarity CLEAR Urine pH 5 5-9 Urine Specific Drake 1.025 H 1.016-1.022 Urine Protein NEGATIVE NEGATIVE Urine Glucose (UA) NEGATIVE NEGATIVE Urine Ketones NEGATIVE NEGATIVE Urine Nitrite NEGATIVE NEGATIVE Urine Bilirubin NEGATIVE NEGATIVE Urine Urobilinogen NORMAL NORMAL MG/DL Urine Leukocyte Esterase 1+ H NEGATIVE Urine RBC (Auto) NEGATIVE NEGATIVE Urine RBC NONE /HPF Urine WBC 5-10 H /HPF Urine Squamous Epithelial Cells 10-25 H /HPF Urine Crystals NONE /LPF Urine Bacteria MODERATE H /HPF Urine Casts NONE /LPF Urine Mucus MODERATE H /LPF Urine Culture Indicated YES Urine Opiates Screen NEGATIVE NEGATIVE Urine Oxycodone Screen NEGATIVE NEGATIVE Urine Methadone Screen NEGATIVE NEGATIVE Urine Propoxyphene Screen NEGATIVE NEGATIVE Urine Barbiturates Screen NEGATIVE NEGATIVE Ur Tricyclic Antidepressants Screen NEGATIVE NEGATIVE Urine Phencyclidine Screen NEGATIVE NEGATIVE Urine Amphetamines Screen NEGATIVE NEGATIVE Urine Methamphetamines Screen NEGATIVE NEGATIVE Urine Benzodiazepines Screen NEGATIVE NEGATIVE Urine Cocaine Screen NEGATIVE NEGATIVE Urine Cannabinoids Screen NEGATIVE NEGATIVE My Orders Orders - CHEVY LOREDO MD Cbc With Automated Diff (05/26/17 09:14) Comprehensive Metabolic Panel (05/26/17 09:14) Hcg,Qualitative Serum (05/26/17 09:14) Ua Culture If Indicated (05/26/17 09:14) Saline Lock/Iv-Start (05/26/17 09:14) Ns Iv 1000 Ml (Sodium Chloride 0.9%) (05/26/17 09:15) Ondansetron Injection (Zofran Injectio (05/26/17 09:15) Lipase (05/26/17 09:19) Famotidine Injection (Pepcid Injection) (05/26/17 09:30) Promethazine Injection (Phenergan Injec (05/26/17 09:47) Ekg Tracing (05/26/17 10:20) Monitor-Rhythm Ecg Trace Only (05/26/17 10:20) Troponin I (05/26/17 10:20) Ns Iv 1000 Ml (Sodium Chloride 0.9%) (05/26/17 10:30) Urine Culture (05/26/17 10:12) Ciprofloxacin Iv 400mg/200ml (Cipro Iv S (05/26/17 10:45) Chest 1 View, Ap/Pa Only (05/26/17 10:35) Lidocaine 2% Viscous 15 Ml (Xylocaine Vi (05/26/17 11:15) Antacid Suspension (Mylanta Suspension (05/26/17 11:15) Drug Screen Stat (Urine) (05/26/17 11:09) Alcohol (05/26/17 11:09) Helicobacter Pylori Maegan Igg (05/26/17 12:31) Medications Given in ED Current Medications Medications Dose Ordered Sig/Denae Route Start Time Stop Time Status Last Admin Dose Admin Al Hydrox/Mg Hydrox/Simethicone 30 ml ONCE ONCE PO 05/26/17 11:15 05/26/17 11:16 DC 05/26/17 11:20 30 ML Ciprofloxacin/ Dextrose 200 ml @ 200 mls/hr ONCE ONCE IV 05/26/17 10:45 05/26/17 11:44 DC 05/26/17 11:04 200 MLS/HR Famotidine 20 mg ONCE ONCE IVP 05/26/17 09:30 05/26/17 09:31 DC 05/26/17 09:25 20 MG Lidocaine HCl 15 ml ONCE ONCE PO 05/26/17 11:15 05/26/17 11:16 DC 05/26/17 11:20 15 ML Ondansetron HCl 8 mg ONCE ONCE IVP 05/26/17 09:15 05/26/17 09:17 DC 05/26/17 09:25 8 MG Promethazine HCl 25 mg STK-MED ONCE .ROUTE 05/26/17 09:47 05/26/17 09:51 DC 05/26/17 09:55 25 MG Sodium Chloride 1,000 ml ONCE ONCE IV 05/26/17 10:30 05/26/17 10:31 DC 05/26/17 10:15 1,000 ML Vital Signs/I&O Vital Sign - Last 12Hours 05/26/17 05/26/17 09:15 12:34 Temp 97.0 Pulse 140 88 Resp 18 18 B/P (MAP) 147/106 (120) 110/68 (120) Pulse Ox 100 100 Capillary Refill : Less Than 3 Seconds Blood Pressure Mean: 120 ECG Initial ECG Impression Date: May 26, 2017 Initial ECG Impression Time: 10:27 Initial ECG Rate: 82 Initial ECG Rhythm: Normal Sinus Initial ECG Intervals: Normal Initial ECG Impression: Normal Comment Normal sinus rhythm with no ST elevation or depression. No abnormal intervals or axis deviation. Departure Impression Impression: Primary Impression: Nausea and vomiting Qualified Codes: R11.2 - Nausea with vomiting, unspecified Additional Impressions: Atypical chest pain Urinary tract infection Qualified Codes: N39.0 - Urinary tract infection, site not specified Disposition: 01 HOME, SELF-CARE Condition: Improved Departure-Patient Inst. Decision time for Depature: 12:00 Referrals: [facility] (PCP/Family) Primary Care Physician Patient Instructions: Chest Pain, Urinary Tract Infection, Adult (DC) Add. Discharge Instructions: Drink plenty of clear liquids. Complete your antibiotics as prescribed. Use Zofran (ondansetron) as prescribed for nausea and vomiting. Return to care if symptoms worsen. Follow up with your primary care provider soon as possible and discuss the potential for endoscopy. An H. pylori test has been added to your blood work in the ER. Discuss results with your doctor. You may take Tylenol for pain in your chest. Try making a slurry with your care if a by crushing it and mixing with 10 mL of water. Take this 30 minutes before eating or drinking and before bed (4 times a day). Take omeprazole (Prilosec) 20 mg twice daily. All discharge instructions reviewed with patient and/or family. Voiced understanding. Scripts Ondansetron (Zofran Odt) 4 Mg Tab.rapdis 4 MG SL Q4H, #10 TAB Prov: CHEVY LOREDO MD 05/26/17 Ciprofloxacin HCl (Cipro) 500 Mg Tablet 500 MG PO BID, #10 TAB Prov: CHEVY LOREDO MD 05/26/17 CHEVY LOREDO MD May 26, 2017 12:26
[2017-05-26] MEDS ORDERED: CIPR-225 PO (12:27)
[2017-05-26] MEDS ORDERED: ONDA4TAB8 SL (12:27)
[2017-05-26 12:34] VITALS: BP 110/68
== END 2017-05-26 12:34 | disposition home or self-care (01) ==
LOC: EDUNIT# 09:08 → EEVIPCON 09:10 → ER 09:10
DX: R07.89 Other chest pain (principal); N39.0 Urinary tract infection, site not specified; F41.9 Anxiety disorder, unspecified; F32.9 Major depressive disorder, single episode, unspecified; Z88.2 Allergy status to sulfonamides; Z88.1 Allergy status to other antibiotic agents; Z90.89 Acquired absence of other organs; Z98.51 Tubal ligation status; Z87.440 Personal history of urinary (tract) infections
CPT/HCPCS: 36415; 71045; 80053; 80306; 80320; 81000; 83690; 84484; 84703; 85025; 86677; 87088; 93041; 96361; 96365; 96375

== ENCOUNTER 2017-12-13 09:33 | Emergency (ER) | payer SELFPAY ==
[~2017-12-13] VITALS: Ht 160 cm; Wt 73.5 kg
[~2017-12-13 09:33] MED LIST changes: +CIPR-225 PO; +ONDA4TAB8 SL
[2017-12-13] MEDS ORDERED: CARAFATE (10:18)
--- NOTE | 2017-12-13 11:08 | ED Lower Extremity ---
General Chief Complaint: Trauma-Non Activation Stated Complaint: FALL;R HIP PAIN;NECK PAIN Nursing Triage Note: AMB TO ROOM REPOTS FELL OFF HORSE LAST NIGHT NO LOC FELL ON TO R SIDE C/O NECK,SHOULDER, HIP PAIN. C COLLAR PLACED ON ADMIT. Nursing Sepsis Screen: No Definite Risk Source: patient Exam Limitations: no limitations (CYN PALOMO STUDENT) History of Present Illness Date Seen by Provider: Dec 13, 2017 Time Seen by Provider: 11:01 Initial Comments Patient is a 37 year old female who presents to the ED after a fall from a horse at 8 pm the day prior. She states that the horse took off when the saddle slipped and she fell on her right side in a grassy area. Patient complains of right hip pain. She is able to walk with some difficulty but is able to bear weight on her right leg. She also complains of some left sided neck pain that she thinks is due to her hitting her head during the fall. Patient denies any loss of consciousness. She also denies any changes in her vision and headache. She does admit to some nausea without vomiting which patient attributes to her level of pain. For the pain she had been alternating Tylenol and ibuprofen. She denies any weakness or sensory changes in her extremities. Location Injury Occurred: SEE TRIAGE Onset: yesterday (evening) Pain/Injury Location: right hip Method of Injury: fell (From horse) Modifying Factors: Worse With Movement; Improves With Pain Medication (CYN PALOMO MED STUDENT) Allergies and Home Medications Allergies Coded Allergies: Sulfa (Sulfonamide Antibiotics) (Unverified Allergy, Unknown, 10/22/09) cephalexin (Verified Allergy, Unknown, 01/30/15) Home Medications Duloxetine HCl 60 Mg Capsule.dr, 60 MG PO DAILY, (Reported) Lurasidone HCl 60 Mg Tablet, 60 MG PO DAILY, (Reported) Ondansetron 8 Mg Tab.rapdis, 8 MG PO Q6H PRN for NAUSEA/VOMITING-1ST LINE Prescribed by: KATIA OSBORNE on 01/04/17 3735 Patient Home Medication List Home Medication List Reviewed: Yes (CHEVY LOREDO MD) Review of Systems Constitutional: No dizziness, No weakness EENTM: No blurred vision, No double vision, No vision loss Respiratory: No short of breath Cardiovascular: no symptoms reported Gastrointestinal: No abdominal pain; nausea; No vomiting 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: no symptoms reported : No (States she has not had sex since her last menstual cycle) Musculoskeletal: back pain (right sided), joint pain (right hip), muscle pain, neck pain (Left sided) Skin: lesions (right forearm; Bruising on right hip) Psychiatric/Neurological: Denies Headache, Denies Numbness, Denies Tingling, Denies Weakness (CYN PALOMO) Past Azlbmlc-Lzlhoa-Itjxrs Hx Past Med/Social Hx: Reviewed Nursing Past Med/Soc Hx (CHEVY LOREDO MD) Patient Social History Alcohol Use: Denies Use Recreational Drug Use: No Smoking Status: Never a Smoker Recent Foreign Travel: No Contact w/Someone Who Travel: No Recent Infectious Disease Expo: No Recent Hopitalizations: No (CYN PALOMO) Immunizations Up To Date Tetanus Booster (TDap): Unknown (CYN PALOMO) Past Medical History Surgeries: Yes ( d&c x 2) Adenoidectomy, Section, Tonsillectomy, Tubal Ligation Respiratory: No Cardiac: No Neurological: No Reproductive Disorders: No 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 oz. 73.947193ov; BMI Method:Stated General Appearance: mild distress HEENT: PERRL/EOMI Neck: non-tender, full range of motion, supple, normal inspection Cardiovascular: regular rate, rhythm, no edema, no gallop, no murmur Respiratory: chest non-tender, lungs clear, normal breath sounds, no respiratory distress, no accessory muscle use Gastrointestinal: normal bowel sounds, non tender, soft Back: no CVA tenderness, no vertebral tenderness Hips: left hip non-tender, left hip normal inspection, left hip normal range of motion, left hip no evidence of injury; right hip ecchymosis, right hip limited range of motion (Due to pain), right hip pain, right hip soft tissue tenderness Legs: bilateral leg non-tender, bilateral leg normal inspection Knees: bilateral knee non-tender, bilateral knee normal inspection Ankles: bilateral ankle non-tender, bilateral ankle normal inspection Neurologic/Tendon: normal sensation, normal motor functions, normal tendon functions, responds to pain Neurologic/Psychiatric: no motor/sensory deficits, alert, normal mood/affect, oriented x 3 Skin: normal color, warm/dry, ecchymosis (Right hip), other (abrasion on right forearm) (CYN PALOMO MED STUDENT) Progress/Results/Core Measures Results/Orders My Orders Orders - CHEVY LOREDO MD Lumbar Spine - 2-3 Views (12/13/17 10:56) Pelvis With Right Hip 2-3views (12/13/17 10:56) Ketorolac Injection (Toradol Injection) (12/13/17 12:30) Im/Sub-Q Injection Non-Ab Ed (12/13/17 ) (CHEVY LOREDO MD) Vital Signs/I&O (CHEVY LOREDO MD) Blood Pressure Mean: 86 Progress Progress Note : Progress Note This patient was interviewed, seen, and examined by me personally along with SIOMARA Capone. I agree with her history, documentation, exam, assessment, and plan with the following additions. Patient was thrown from a horse yesterday and landed on her right side. She primarily complains of right hip, pelvis, and lower back pain. She denies any significant head injury. Neck is nontender. There was no loss of consciousness. She is able to ambulate with some difficulty. Exam: Gen.: Alert, mild distress from pain, well-developed adult female HEENT: Normocephalic and atraumatic, mucous membranes moist Neck: Nontender Heart: Regular rate and rhythm without murmur Chest: Clear to auscultation bilaterally with normal effort Musculoskeletal: Right hip is tender to palpation with subtle bruising. There is also tenderness to palpation over the lower lumbar spine. Mild pain with rotation of the right hip. Neuro: Alert, oriented, normal mood and affect Skin: Subtle bruising over the right hip X-rays demonstrated no acute bony injury. Toradol was given for pain. (CHEVY LOREDO MD) Diagnostic Imaging Diagonstic Imaging: Xray Plain Films/CT/US/NM/MRI: pelvis, hip Comments X-rays of the right hip and pelvis viewed by me and report reviewed. See report below: NAME: ATUL [facility]GADILLO [facility] REC#: [id number] PT STATUS: [facility] ER : 1980 PHYSICIAN: CHEVY LOREDO MD ADMIT DATE: 12/13/17/ER Signed Date of Exam: 12/13/17 PELVIS WITH RIGHT HIP 2-3VIEWS INDICATION: Thrown from a horse and right hip pain. TIME OF EXAM: 11:39 AM FINDINGS: An AP view of the pelvis and two views of the right hip were obtained. Femoral acetabular alignment is normal. The joint spaces are well-maintained. The femoral heads and necks appear intact. The rami appear intact. SI joints and symphysis are non-widened. No fractures are seen. IMPRESSION: No acute bony abnormalities detected. Dictated by: Dictated on workstation # [id number] Dict: 12/13/17 1132 Trans: 12/13/17 1513 Interpreted by: BELIA HOLLIS MD Electronically signed by: BELIA HOLLIS MD 12/13/17 1513 Diagonstic Imaging: Xray Plain Films/CT/US/NM/MRI: other (lumbar spine) Comments X-rays of the lumbar spine viewed by me and report reviewed. See report below: NAME: ATUL DELGADILLO [facility] REC#: [id number] PT STATUS: [facility] ER : 1980 PHYSICIAN: CHEVY LOREDO MD ADMIT DATE: 12/13/17/ER Signed Date of Exam: 12/13/17 LUMBAR SPINE - 2-3 VIEWS INDICATION: Thrown from a horse and back pain. TIME OF EXAM: 11:37 a.m. Curvature and alignment of the lumbar spine is normal. Vertebral body heights and disc spaces are maintained. No fracture or subluxation is identified. IMPRESSION: No acute bony abnormality is detected. Dictated by: Dictated on workstation # [id number] Dict: 12/13/17 1133 Trans: 12/13/17 1513 Interpreted by: BELIA HOLLIS MD Electronically signed by: BELIA HOLLIS MD 12/13/17 1513 (CHEVY LOREDO MD) Departure Impression Primary Impression: Fall from horse Qualified Codes: V80.010A - Animal-rider injured by fall from or being thrown from horse in noncollision accident, initial encounter Additional Impressions: Right hip pain Lower back pain Qualified Codes: M54.5 - Low back pain Contusion of right hip Qualified Codes: S70.01XA - Contusion of right hip, initial encounter Disposition: HOME, SELF-CARE Condition: Improved Departure-Patient Inst. Decision time for Depature: 12:19 (CHEVY LOREDO MD) Referrals: [facility] (PCP/Family) Primary Care Physician Patient Instructions: Contusion (DC) Add. Discharge Instructions: You may continue taking ibuprofen up to 600 mg every 6 hours as needed and/or Tylenol (acetaminophen) up to 1000 mg every 6 hours. Drink plenty of clear liquids. Follow-up with your primary care provider if not improving as expected. You should gradually improve over the next several days. You may ice injured areas in 20 minute intervals today. Starting tomorrow use gentle heat such as a warm bath or heating pad on low to help relax sore areas. Return to care if you have worsening symptoms. All discharge instructions reviewed with patient and/or family. Voiced understanding. Work/School Note: Work Release Form Date Seen in the Emergency Department: Dec 13, 2017 Return to Work: Dec 15, 2017 Restrictions: No Restrictions CYN PALOMO MED STUDENT Dec 13, 2017 11:08 CHEVY LOREDO MD Dec 13, 2017 12:22
--- NOTE | 2017-12-13 11:36 | Diagnostic Imaging Report ---
INDICATION: Thrown from a horse and right hip pain. TIME OF EXAM: 11:39 AM FINDINGS: An AP view of the pelvis and two views of the right hip were obtained. Femoral acetabular alignment is normal. The joint spaces are well-maintained. The femoral heads and necks appear intact. The rami appear intact. SI joints and symphysis are non-widened. No fractures are seen. IMPRESSION: No acute bony abnormalities detected. Dictated by: Dictated on workstation # [id number]
--- NOTE | 2017-12-13 11:36 | Diagnostic Imaging Report ---
INDICATION: Thrown from a horse and back pain. TIME OF EXAM: 11:37 a.m. Curvature and alignment of the lumbar spine is normal. Vertebral body heights and disc spaces are maintained. No fracture or subluxation is identified. IMPRESSION: No acute bony abnormality is detected. Dictated by: Dictated on workstation # [id number]
[2017-12-13] MEDS ORDERED: KETOROLAC 30 MG/ML VIAL IM ONE (12:30)
[2017-12-13 12:39] VITALS: BP 103/69
== END 2017-12-13 12:39 | disposition home or self-care (01) ==
LOC: EDUNIT# 09:33 → ER 09:35
DX: S70.01XA Contusion of right hip, initial encounter (principal); M54.5 Low back pain; K21.9 Gastro-esophageal reflux disease without esophagitis; F41.9 Anxiety disorder, unspecified; F32.9 Major depressive disorder, single episode, unspecified; Z88.2 Allergy status to sulfonamides; Z88.1 Allergy status to other antibiotic agents; Z79.52 Long term (current) use of systemic steroids; Z98.890 Other specified postprocedural states; Z87.19 Personal history of other diseases of the digestive system; Z87.440 Personal history of urinary (tract) infections; Z98.51 Tubal ligation status; Z90.89 Acquired absence of other organs; V80.010A Animal-rider injured by fall from or being thrown from horse in noncollision accident, initial encounter; W22.09XA Striking against other stationary object, initial encounter
CPT/HCPCS: 72100; 96372

== ENCOUNTER 2020-12-30 15:34 | Emergency (ER) | payer MEDICAID ==
[~2020-12-30] VITALS: Ht 162 cm; Wt 93.4 kg
[~2020-12-30 15:34] MED LIST changes: +CARAFATE; +SERT-414; -SERT100T8
[2020-12-30] MEDS ORDERED: PROCHLORPERAZINE 10 MG/2ML INJ (COMPAZINE) IV STA (16:19)
[2020-12-30] MEDS ORDERED: KETOROLAC 30 MG/ML VIAL IVP STA (16:19)
[2020-12-30] MEDS ORDERED: diphenhydrAMINE 50 MG/ML INJ (BENADRYL) IV STA (16:19)
[2020-12-30] MEDS ORDERED: NS IV 1000 ML 1,000 ML IV SCH (16:30)
[2020-12-30] MEDS ORDERED: NS 100 ML (IVPB) BAG IV ONE (16:45)
[2020-12-30] MEDS ORDERED: HOLD METFORMIN - RECEIVED CONTRAST 20 ML VIAL IV SCH (16:45)
[2020-12-30] MEDS ORDERED: IOHEXOL 350 MG/ML 100 ML (OMNIPAQUE 350) VIAL IV ONE (16:45)
[2020-12-30 16:53] LABS: BASOPHILS % (AUTO) 1 % (0-10); EOSINOPHILS # (AUTO) 0.1 10^3/uL (0.0-0.3); EOSINOPHILS % (AUTO) 1 % (0-10); HEMATOCRIT 39 % (35-52); HEMOGLOBIN 12.7 g/dL (11.5-16.0); LYMPHOCYTES # (AUTO) 2.4 10^3/uL (1.0-4.0); LYMPHOCYTES % (AUTO) 28 % (12-44); MEAN CORPUSCULAR HEMOGLOBIN 28 pg (25-34); MEAN CORPUSCULAR HGB CONC 32 g/dL (32-36); MEAN CORPUSCULAR VOLUME 88 fL (80-99); MEAN PLATELET VOLUME 10.6 fL (9.0-12.2); MONOCYTES # (AUTO) 0.4 10^3/uL (0.0-1.0); MONOCYTES % (AUTO) 5 % (0-12); NEUTROPHILS # (AUTO) 5.7 10^3/uL (1.8-7.8); NEUTROPHILS % (AUTO) 66 % (42-75); PLATELET COUNT 306 10^3/uL (130-400); WHITE BLOOD COUNT 8.7 10^3/uL (4.3-11.0)
[2020-12-30 16:59] LABS: ALBUMIN 4.3 GM/DL (3.2-4.5); POTASSIUM 3.5 MMOL/L (3.6-5.0)
[2020-12-30 17:00] LABS: CALCIUM 9.8 MG/DL (8.5-10.1)
[2020-12-30 17:02] LABS: TOTAL PROTEIN 7.8 GM/DL (6.4-8.2)
[2020-12-30 17:03] LABS: BILIRUBIN,TOTAL 0.2 MG/DL (0.1-1.0)
[2020-12-30 17:05] LABS: CREATININE SERUM 0.81 MG/DL (0.60-1.30)
--- NOTE | 2020-12-30 17:10 | ED Headache ---
General Chief Complaint: Head/Cervical Problems Stated Complaint: HEAD PAIN/VISION ISSUES Nursing Triage Note: PT PRESENTS TO ED WITH COMPLAINTS OF MARSHALL STARTING . PT REPORTS SHE VOMITED ON THE WAY TO THE HOSPITAL. PT REPORTS SHE HAS STRUGGLED WITH INTERMITTENT MARSHALL X 2 MONTHS. PT REPORTS SHE HAS NOT TAKEN ANYTHING AT HOME FOR HER MARSHALL. History of Present Illness Date Seen by Provider: Dec 30, 2020 Time Seen by Provider: 15:50 Initial Comments 40-year-old female presents for 2-month history of headaches intermittently. She lived in [place] and was being worked up by her primary care provider and was scheduled to be getting an MRI when she moved back here to [place]. She reports over the last 2 weeks the headaches have become almost daily, she was recently also diagnosed with thyroid disorder and started on Synthroid. She has been trying Tylenol and ibuprofen with no improvement in her symptoms. She reports one episode of vomiting today prior to arrival. She does wear glasses and states on occasion she will have vision changes with her headaches. She denies any photophobia. No head or neck injuries. Timing/Duration: waxing and waning, other Severity/Quality: moderate Location: frontal, parietal Prior Headaches/Recent Trauma: frequent headaches Associated Symptoms: No fever/chills, No loss of consciousness; nausea/vomiting; No nasal congestion, No nasal drainage, No sinus infection, No stiff neck; vision changes; No weakness Allergies and Home Medications Allergies Coded Allergies: Sulfa (Sulfonamide Antibiotics) (Unverified Allergy, Unknown, 10/22/09) cephalexin (Verified Allergy, Unknown, 01/30/15) Patient Home Medication List Home Medication List Reviewed: Yes Duloxetine HCl (Cymbalta) 60 Mg Capsule.dr, 60 MG PO DAILY, (Reported) Entered as Reported by: BUDDY CHAVARRIA on 01/30/15 0755 Lurasidone HCl (Latuda) 60 Mg Tablet, 60 MG PO DAILY, (Reported) Entered as Reported by: BUDDY CHAVARRIA on 01/30/15 0755 Ondansetron (Zofran Odt) 8 Mg Tab.rapdis, 8 MG PO Q6H PRN for NAUSEA/VOMITING- 1ST LINE Prescribed by: KATIA OSBORNE on 01/04/17 0981 Sertraline HCl (Sertraline HCl) 100 Mg Tablet, (Reported) Entered as Reported by: ROSALINA CARDOSO on 03/15/17 0186 Sumatriptan Succinate (Imitrex) 25 Mg Tablet, 25 MG PO ONCE PRN for HEADACHE Prescribed by: JOSEPH CARDENAS on 12/30/20 1727 [Carafate] , (Reported) Entered as Reported by: BRYCE MELÉNDEZ on 12/13/17 1018 Review of Systems Review of Systems Constitutional: no symptoms reported, see HPI Eyes: See HPI, Decreased Acuity Psychiatric/Neurological: See HPI, Headache (feels like head is being squeezed, not worse headache of her life but close. ) All Other Systems Reviewed Negative Unless Noted: Yes Past Ceotvvo-Aibuzy-Ckqcpm Hx Patient Social History Tobacco Use?: No Substance use?: No Alcohol Use?: No Pt feels they are or have been: No Immunizations Up To Date Tetanus Booster (TDap): Unknown First/Initial COVID19 Vaccinat: May COVID19 Vaccination Juan: JUNE COVID Vaccine Pattern Vault Clerk: LOR Past Medical History Surgery/Hospitalization HX: PMH: HYPOTHYROIDISM, ANXIETY, BIPOLAR SX: DNC, TONSILS, C-SEC Surgeries: Yes ( d&c x 2) Adenoidectomy, Section, Tonsillectomy, Tubal Ligation Respiratory: No Cardiac: No Neurological: No Reproductive Disorders: No 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 oz. 73.959262xv; 35.00 BMI Method:Stated General Appearance: WD/WN, no apparent distress HEENT: PERRL/EOMI, normal ENT inspection, TMs normal, pharynx normal Neck: non-tender, full range of motion, supple, normal inspection Cardiovascular: normal peripheral pulses, regular rate, rhythm Respiratory: chest non-tender, lungs clear, normal breath sounds Gastrointestinal: normal bowel sounds, non tender, soft Psychiatric: alert, oriented x 3, depressed affect Crainal Nerves: normal hearing, normal speech, PERRL Coordination/Gait: normal finger to nose, normal gait Motor/Sensory: no motor deficit, no sensory deficit Skin: normal color, warm/dry Progress/Results/Core Measures Results/Orders Lab Results Laboratory Tests Test 12/30/20 16:45 12/30/20 17:09 Range/Units White Blood Count 8.7 4.3-11.0 10^3/uL Red Blood Count 4.47 3.80-5.11 10^6/uL Hemoglobin 12.7 11.5-16.0 g/dL Hematocrit 39 35-52 % Mean Corpuscular Volume 88 80-99 fL Mean Corpuscular Hemoglobin 28 25-34 pg Mean Corpuscular Hemoglobin Concent 32 32-36 g/dL Red Cell Distribution Width 13.2 10.0-14.5 % Platelet Count 306 130-400 10^3/uL Mean Platelet Volume 10.6 9.0-12.2 fL Immature Granulocyte % (Auto) 0 % Neutrophils (%) (Auto) 66 42-75 % Lymphocytes (%) (Auto) 28 12-44 % Monocytes (%) (Auto) 5 0-12 % Eosinophils (%) (Auto) 1 0-10 % Basophils (%) (Auto) 1 0-10 % Neutrophils # (Auto) 5.7 1.8-7.8 10^3/uL Lymphocytes # (Auto) 2.4 1.0-4.0 10^3/uL Monocytes # (Auto) 0.4 0.0-1.0 10^3/uL Eosinophils # (Auto) 0.1 0.0-0.3 10^3/uL Basophils # (Auto) 0.0 0.0-0.1 10^3/uL Immature Granulocyte # (Auto) 0.0 0.0-0.1 10^3/uL Sodium Level 137 135-145 MMOL/L Potassium Level 3.5 L 3.6-5.0 MMOL/L Chloride Level 103 98-107 MMOL/L Carbon Dioxide Level 25 21-32 MMOL/L Anion Gap 9 5-14 MMOL/L Blood Urea Nitrogen 11 7-18 MG/DL Creatinine 0.81 0.60-1.30 MG/DL Estimat Glomerular Filtration Rate 79 BUN/Creatinine Ratio 14 Glucose Level 84 70-105 MG/DL Calcium Level 9.8 8.5-10.1 MG/DL Corrected Calcium 9.6 8.5-10.1 MG/DL Total Bilirubin 0.2 0.1-1.0 MG/DL Aspartate Amino Transf (AST/SGOT) 8 5-34 U/L Alanine Aminotransferase (ALT/SGPT) 10 0-55 U/L Alkaline Phosphatase 53 40-136 U/L C-Reactive Protein High Sensitivity 0.86 H 0.00-0.50 MG/DL Total Protein 7.8 6.4-8.2 GM/DL Albumin 4.3 3.2-4.5 GM/DL Urine Color YELLOW Urine Clarity CLEAR Urine pH 7.0 5-9 Urine Specific [place] 1.015 L 1.016-1.022 Urine Protein NEGATIVE NEGATIVE Urine Glucose (UA) NEGATIVE NEGATIVE Urine Ketones NEGATIVE NEGATIVE Urine Nitrite NEGATIVE NEGATIVE Urine Bilirubin NEGATIVE NEGATIVE Urine Urobilinogen 0.2 < = 1.0 MG/DL Urine Leukocyte Esterase TRACE H NEGATIVE Urine RBC (Auto) NEGATIVE NEGATIVE Urine RBC 0-2 /HPF Urine WBC 2-5 /HPF Urine Squamous Epithelial Cells 10-25 H /HPF Urine Renal Epithelial Cells NONE /HPF Urine Crystals NONE /LPF Urine Bacteria NEGATIVE /HPF Urine Casts NONE /LPF Urine Mucus NEGATIVE /LPF Urine Culture Indicated NO My Orders Orders - JOSEPH CARDENAS Ketorolac Injection (Toradol Injection) (12/30/20 16:19) Ed Iv/Invasive Line Start (12/30/20 16:19) Ns Iv 1000 Ml (Sodium Chloride 0.9%) (12/30/20 16:30) Diphenhydramine Injection (Benadryl Inje (12/30/20 16:19) Prochlorperazine Injection (Compazine In (12/30/20 16:19) Ct Head W (12/30/20 16:19) Cbc With Automated Diff (12/30/20 16:35) Comprehensive Metabolic Panel (12/30/20 16:35) Hs C Reactive Protein (12/30/20 16:35) Ua Culture If Indicated (12/30/20 16:35) Iohexol Injection (Omnipaque 350 Mg/Ml 1 (12/30/20 16:45) Received Contrast (Hold Metformin- Contr (12/30/20 16:45) Ns (Ivpb) (Sodium Chloride 0.9% Ivpb Bag (12/30/20 16:45) Medications Given in ED Current Medications Medications Dose Ordered Sig/Denae Route Start Time Stop Time Status Last Admin Dose Admin Iohexol 100 ml ONCE ONCE IV 12/30/20 16:45 12/30/20 16:46 DC 12/30/20 16:54 80 ML Sodium Chloride 100 ml ONCE ONCE IV 12/30/20 16:45 12/30/20 16:46 DC 12/30/20 16:54 80 ML Vital Signs/I&O 12/30/20 12/30/20 15:43 17:41 Temp 35.3 Pulse 70 81 Resp 18 16 B/P (MAP) 114/76 (89) 105/91 Pulse Ox 98 98 Blood Pressure Mean: 89 Progress Progress Note : Time: 15:50 Progress Note Patient seen and evaluated, will give normal saline 1 L per IV with Benadryl 50 mg IV, Toradol 30 mg IV and Compazine [address] of the head based on patient's complaints and rating of her pain. 1600 patient reports improvement in her headache. Awaiting CT results. 1715 CT results negative. Discharge instructions and return precautions reviewed with the patient. Will start Imitrex for migraine management. Diagnostic Imaging Diagonstic Imaging: CT Plain Films/CT/US/NM/MRI: head Comments NAME: ATUL [facility] REC#: [id number] PT STATUS: REG ER : 1980 PHYSICIAN: JOSEPH CARDENAS ADMIT DATE: 12/30/20/ER Draft Date of Exam:12/30/20 CT HEAD W PROCEDURE: CT head with contrast. TECHNIQUE: Multiple contiguous axial images were obtained through the brain after the administration of intravenous contrast. Auto Exposure Controls were utilized during the CT exam to meet ALARA standards for radiation dose reduction. INDICATION: Headache and dizziness for four days. COMPARISON: Correlation is made with a head CT from 09/14/2013. FINDINGS: Ventricles and sulci are within normal limits. No sulcal effacement or midline shift is identified. No acute intra-axial or extra-axial hemorrhage is detected. Cisterns are patent. Post contrast images are without abnormal enhancement. The visualized paranasal sinuses are clear. IMPRESSION: Unremarkable pre and post contrast CT of the brain. Dictated on workstation # [id number] Dict: 12/30/201711 Trans: 12/30/201716 6 [id number] Interpreted by: BELIA HOLLIS MD Electronically signed by: Reviewed: Reviewed by Me Departure Impression Primary Impression: Tension type headache Qualified Codes: G44.229 - Chronic tension-type headache, not intractable Disposition: HOME, SELF-CARE Condition: Improved Departure-Patient Inst. Decision time for Depature: 17:15 Referrals: [facility] [place] NO,LOCAL PHYSICIAN (PCP) Primary Care Physician Patient Instructions: Migraines (DC) Add. Discharge Instructions: Establish care with a primary care doctor. Try the Imitrex for headaches. Take 1 pill, may repeat a second at 2 hours if no improvement. Track headaches and medications usage on journal, to show primary care. Increase water intake, 16 oz every 2 hours, while awake. Return to ER for new, urgent healthcare. All discharge instructions reviewed with patient and/or family. Voiced under standing. Scripts Sumatriptan Succinate (Imitrex) 25 Mg Tablet 25 MG PO ONCE PRN for HEADACHE, #20 TAB 0 Refills may repeat medication, once, at 2 hours, if no improvement. Prov: JOSEPH CARDENAS 12/30/20 Work/School Note: Local Medical Staff Listing JOSEPH CARDENAS Dec 30, 2020 17:10
[2020-12-30 17:16] LABS: BILIRUBIN,URINE NEGATIVE (NEGATIVE); CLARITY,URINE CLEAR; COLOR,URINE YELLOW; GLUCOSE, URINE (UA) NEGATIVE (NEGATIVE); KETONES,URINE NEGATIVE (NEGATIVE); LEUKOCYTE ESTERASE ,URINE TRACE (NEGATIVE); NITRITE,URINE NEGATIVE (NEGATIVE); PROTEIN,URINE NEGATIVE (NEGATIVE)
--- NOTE | 2020-12-30 17:17 | Diagnostic Imaging Report ---
PROCEDURE: CT head with contrast. TECHNIQUE: Multiple contiguous axial images were obtained through the brain after the administration of intravenous contrast. Auto Exposure Controls were utilized during the CT exam to meet ALARA standards for radiation dose reduction. INDICATION: Headache and dizziness for four days. COMPARISON: Correlation is made with a head CT from 09/14/2013. FINDINGS: Ventricles and sulci are within normal limits. No sulcal effacement or midline shift is identified. No acute intra-axial or extra-axial hemorrhage is detected. Cisterns are patent. Post contrast images are without abnormal enhancement. The visualized paranasal sinuses are clear. IMPRESSION: Unremarkable pre and post contrast CT of the brain. Dictated by: Dictated on workstation # [id number]
[2020-12-30] MEDS ORDERED: SUMA25TA3 PO (17:27)
[2020-12-30 17:29] LABS: BACTERIA,URINE NEGATIVE /HPF; RBC,URINE 0-2 /HPF
[2020-12-30 17:41] VITALS: BP 105/91
== END 2020-12-30 17:40 | disposition home or self-care (01) ==
LOC: EDUNIT# 15:34 → ER 15:37
DX: G44.209 Tension-type headache, unspecified, not intractable (principal); F41.9 Anxiety disorder, unspecified; F31.9 Bipolar disorder, unspecified; Z79.899 Other long term (current) drug therapy
CPT/HCPCS: 36415; 70460; 70470; 80053; 81000; 85025; 86141

== ENCOUNTER → 2021-05-18 | Outpatient (CLI) | payer MEDICAID ==
[~2021-05-18] MED LIST changes: -DULO60CA6 PO; +DULO60CA7 PO; +SUMA25TA3 PO
--- NOTE | 2021-05-18 14:58 | Diagnostic Imaging Report ---
INDICATION: Left upper leg edema and instability. EXAMINATION: Left knee, 3 views, on 05/18/2021. FINDINGS: Moderate patellofemoral narrowing is noted with moderate medial compartment narrowing and spurring as well. There are no fractures or dislocations. No joint effusion. IMPRESSION: Chronic findings with no acute osseous abnormality. Dictated by: Dictated on workstation # [id number]
== END ==
LOC: RAD 13:52
PROVIDERS: ATTEND Nurse Practitioner Family
DX: M23.52 Chronic instability of knee, left knee (principal); R60.0 Localized edema
CPT/HCPCS: 73562

== ENCOUNTER → 2021-08-07 | Outpatient (CLI) | payer MEDICAID ==
--- NOTE | 2021-08-07 15:30 | Diagnostic Imaging Report ---
PROCEDURE: US Non-ob pelvis comp/trans. TECHNIQUE: Multiple realtime grayscale images were obtained of the pelvis in various projections endovaginally. Transabdominal imaging was also performed. INDICATION: Dysfunctional uterine bleeding and pelvic pain. COMPARISON: Pelvic ultrasound 07/29/2010 FINDINGS: The uterus measures 7.7 x 4.2 x 5.7 cm. The myometrium is normal in echogenicity without discrete mass. The endometrium measures up to 1.0 cm where visualized, and is normal in echogenicity. The right ovary measures 3.2 x 2.4 x 3.4 cm. The left ovary measures 3.4 x 1.3 x 1.6 cm. Both ovaries are physiologic in appearance. Simple follicle in the right ovary measures 1.8 x 1.4 cm. Blood flow is seen in both ovaries on color doppler imaging. No suspicious adnexal mass or fluid collection. No free pelvic fluid. IMPRESSION: Normal pelvic ultrasound. Dictated by: Dictated on workstation # [id number]
== END ==
LOC: RAD 11:00
PROVIDERS: ATTEND Surgery
DX: N93.8 Other specified abnormal uterine and vaginal bleeding (principal); R10.2 Pelvic and perineal pain
CPT/HCPCS: 76830; 76856

== ENCOUNTER 2021-09-12 14:12 | Emergency (ER) | payer MEDICAID ==
[~2021-09-12] VITALS: Ht 162 cm; Wt 94.8 kg
[2021-09-12] MEDS ORDERED: ONDANSETRON 4 MG (ZOFRAN) ORAL DISSOLVE TAB PO STA (14:44)
--- NOTE | 2021-09-12 14:48 | ED Respiratory ---
General Chief Complaint: COVID19 Suspect/Confirmed Stated Complaint: HEADACHE,BODY ACHES,VOMITING, COVID EXPOSURE Nursing Triage Note: pt presents to ed via pov from home with complaints of MARSHALL starting . pt reports 3 recent covid exposures. states she was seen at the medical center yesterday and tested negative for covid. pt reports nausea and vomiting starting today. Source: patient Exam Limitations: no limitations History of Present Illness Date Seen by Provider: Sep 12, 2021 Time Seen by Provider: 14:34 Initial Comments Patient is a 41-year-old female who presents to the emergency department today with a chief complaint of headache, body aches, nausea, congestion, productive cough and a little diarrhea onset 3 days ago. She has had multiple friends, family members and coworkers who have tested positive for COVID over the last week. She took ibuprofen and Tylenol each this morning. No measured fevers at home. Headache is global. Nothing makes it any better or any worse. She states her chest feels "heavy" like she is short of breath however room air sats are 96%. No increased work of breathing noted. She is not and has not ever been a smoker. She works at [employer]. She was tested for COVID yesterday at [facility] and it was negative. History of hypothyroidism. All other review of systems reviewed and negative except as stated Timing/Duration: other (3d) Severity: moderate Prior Episodes/Possible Cause: illness exposure Associated Symptoms: chest pain/soreness, cough, headache, lightheadedness, muscle aches, nasal congestion, shortness of breath, other (nausea) Allergies and Home Medications Allergies Coded Allergies: Sulfa (Sulfonamide Antibiotics) (Unverified Allergy, Unknown, 10/22/09) cephalexin (Verified Allergy, Unknown, 01/30/15) Patient Home Medication List Home Medication List Reviewed: Yes Duloxetine HCl (Cymbalta) 60 Mg Capsule.dr, 60 MG PO DAILY, (Reported) Entered as Reported by: BUDDY CHAVARRIA on 01/30/15 075 Lurasidone HCl (Latuda) 60 Mg Tablet, 60 MG PO DAILY, (Reported) Entered as Reported by: BUDDY CHAVARRIA on 01/30/15 075 Ondansetron (Zofran Odt) 8 Mg Tab.rapdis, 8 MG PO Q6H PRN for NAUSEA/VOMITING- 1ST LINE Prescribed by: KATIA OSBORNE on 01/04/17 1742 Sertraline HCl (Sertraline HCl) 100 Mg Tablet, (Reported) Entered as Reported by: ROSALINA CARDOSO on 03/15/17 1457 Sumatriptan Succinate (Imitrex) 25 Mg Tablet, 25 MG PO ONCE PRN for HEADACHE Prescribed by: JOSEPH CARDENAS on 12/30/20 1727 [Carafate] , (Reported) Entered as Reported by: BRYCE MELÉNDEZ on 12/13/17 1018 Review of Systems Review of Systems Constitutional: see HPI, malaise EENTM: nose congestion Respiratory: cough Cardiovascular: no symptoms reported Gastrointestinal: nausea 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: no symptoms reported : No Musculoskeletal: muscle cramps Skin: no symptoms reported Psychiatric/Neurological: Headache All Other Systems Reviewed Negative Unless Noted: Yes Past Mtgyplx-Lkpfcf-Fvgyaj Hx Patient Social History Tobacco Use?: No Substance use?: No Alcohol Use?: No Pt feels they are or have been: No Immunizations Up To Date Tetanus Booster (TDap): Unknown First/Initial COVID19 Vaccinat: May COVID19 Vaccination Juan: June COVID19 Vaccination Date: MAY 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: [employer] Past Medical History Surgery/Hospitalization HX: PMH: HYPOTHYROIDISM, ANXIETY, BIPOLAR SX: DNC, TONSILS, C-SEC Surgeries: Yes ( d&c x 2) Adenoidectomy, Section, Tonsillectomy, Tubal Ligation Respiratory: No Cardiac: No Neurological: No Reproductive Disorders: 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 oz. 73.792657hf; 36.00 BMI Method:Stated General Appearance: WD/WN, no apparent distress Eyes: Bilateral Eye Normal Inspection, Bilateral Eye PERRL, Bilateral Eye EOMI HEENT: PERRL/EOMI, normal ENT inspection, TMs normal, pharynx normal, other (appears adequately hydrated) Neck: full range of motion, supple Respiratory: lungs clear, normal breath sounds, no respiratory distress, no accessory muscle use Cardiovascular: regular rate, rhythm Gastrointestinal: normal bowel sounds, non tender, soft Extremities: normal range of motion, non-tender, normal inspection, no pedal edema Neurologic/Psychiatric: alert, normal mood/affect, oriented x 3 Skin: normal color, warm/dry Progress/Results/Core Measures Suspected Sepsis SIRS Temperature: Pulse: 77 Respiratory Rate: 16 Blood Pressure 131 /93 Mean: 106 Results/Orders Lab Results Laboratory Tests Test 09/12/21 14:26 Range/Units Influenza Type A (RT-PCR) Not Detected Not Detecte Influenza Type B (RT-PCR) Not Detected Not Detecte SARS-CoV-2 RNA (RT-PCR) Not Detected Not Detecte My Orders Orders - DENVER CALDERON MD Covid 19 Inhouse Test (09/12/21 14:37) Influenza A And B By Pcr (09/12/21 14:37) Isolation Central Supply Req (09/12/21 14:37) Ondansetron Oral Dissolve Tab (Zofran (09/12/21 14:44) Vital Signs/I&O 09/12/21 14:15 Temp 36.9 Pulse 77 Resp 16 B/P (MAP) 131/93 (106) Pulse Ox 99 Capillary Refill : Less Than 3 Seconds Blood Pressure Mean: 106 Progress Note : Time: 15:28 Progress Note Patient COVID test is negative. She clinically has COVID, I recommended that she quarantine at home for another 3 days. We will give her a work note for today and tomorrow, she is off on Tuesday and Tuesday. Encouraged hydration, naproxen for headache. We will send Zofran for home. Her vital signs are stable, she is not hypoxic she does not demonstrate any increased work of breathing/respiratory distress. She is comfortable with the plan of care. All questions are sought and answered. Departure Impression Primary Impression: Upper respiratory infection Qualified Codes: J06.9 - Acute upper respiratory infection, unspecified Disposition: 01 HOME, SELF-CARE Condition: Stable Departure-Patient Inst. Decision time for Depature: 15:30 Referrals: NO,LOCAL PHYSICIAN (PCP/Family) Primary Care Physician Patient Instructions: Upper Respiratory Infection ED Add. Discharge Instructions: Drink lots of fluids to stay well-hydrated over the next 2 to 3 days. Quarantine at home through next Tuesday. Vlmv-kkb-iulzzge Aleve, 2 tablets twice daily with food as needed for headache/body aches. Zofran/ondansetron. Every 8 hours as needed for nausea. Return to the emergency department for any new, concerning or emergent complaints. Scripts Ondansetron (Ondansetron Odt) 4 Mg Tab.rapdis 4 MG PO Q8H PRN for nausea, #20 TAB Prov: DENVER CALDERON MD 09/12/21 Work/School Note: Work Release Form Date Seen in the Emergency Department: Sep 12, 2021 Return to Work: Sep 16, 2021 DENVER CALDERON MD Sep 12, 2021 14:48
[2021-09-12] MEDS ORDERED: ONDA4TAB11 PO (15:31)
[2021-09-12 15:36] VITALS: BP 131/93
== END 2021-09-12 15:36 | disposition home or self-care (01) ==
LOC: EDUNIT# 14:12 → ER 14:14
DX: J06.9 Acute upper respiratory infection, unspecified (principal); Z20.822 Contact with and (suspected) exposure to COVID-19
CPT/HCPCS: 87636; 99283

== ENCOUNTER 2022-01-22 18:35 | Emergency (ER) | payer MEDICAID ==
[~2022-01-22] VITALS: Ht 152.4 cm; Wt 91.2 kg
[~2022-01-22 18:35] MED LIST changes: +ONDA4TAB11 PO
[2022-01-22 19:13] LABS: ALBUMIN 4.5 GM/DL (3.2-4.5)
[2022-01-22 19:14] LABS: BASOPHILS % (AUTO) 0 % (0-10); EOSINOPHILS # (AUTO) 0.1 10^3/uL (0.0-0.3); EOSINOPHILS % (AUTO) 1 % (0-10); HEMATOCRIT 38 % (35-52); HEMOGLOBIN 12.5 g/dL (11.5-16.0); LYMPHOCYTES # (AUTO) 2.9 10^3/uL (1.0-4.0); LYMPHOCYTES % (AUTO) 34 % (12-44); MEAN CORPUSCULAR HEMOGLOBIN 28 pg (25-34); MEAN CORPUSCULAR HGB CONC 33 g/dL (32-36); MEAN CORPUSCULAR VOLUME 85 fL (80-99); MEAN PLATELET VOLUME 10.2 fL (9.0-12.2); MONOCYTES # (AUTO) 0.5 10^3/uL (0.0-1.0); MONOCYTES % (AUTO) 5 % (0-12); NEUTROPHILS # (AUTO) 5.1 10^3/uL (1.8-7.8); NEUTROPHILS % (AUTO) 60 % (42-75); PLATELET COUNT 268 10^3/uL (130-400); POTASSIUM 3.8 MMOL/L (3.6-5.0); WHITE BLOOD COUNT 8.6 10^3/uL (4.3-11.0)
[2022-01-22 19:15] LABS: CALCIUM 9.8 MG/DL (8.5-10.1)
[2022-01-22 19:18] LABS: BILIRUBIN,TOTAL 0.3 MG/DL (0.1-1.0)
[2022-01-22 19:23] LABS: MAGNESIUM 2.2 MG/DL (1.6-2.4)
--- NOTE | 2022-01-22 19:27 | Diagnostic Imaging Report ---
INDICATION: Chest pain. COMPARISON: 05/26/2017. FINDINGS: Single frontal view of the chest demonstrates normal heart size and pulmonary vascularity. The lungs are well aerated and clear. No large pleural effusion or pneumothorax is seen. The visualized osseous structures show no acute abnormalities. IMPRESSION: 1. No acute cardiopulmonary process. Dictated by: Dictated on workstation # [id number]
[2022-01-22 19:43] LABS: PROTHROMBIN TIME PATIENT 13.2 SEC (12.2-14.7)
[2022-01-22 19:45] LABS: CREATININE SERUM 0.86 MG/DL (0.60-1.30)
--- NOTE | 2022-01-22 20:07 | ED Chest Pain ---
General Chief Complaint: Chest Pain Stated Complaint: CHEST PAIN,DIZZY,LIGHTHEADED,NAUSEA,FINGERS NUMB Nursing Triage Note: PT AMBULATE TO ROOM 03 WITH C/O CHEST PAIN SINCE THIS MORNING. PT STATES THAT THE PAIN WORSENED IN THE PREVIOUS X2 HOURS. PT REPORTS HX OF ANXIETY AND THAT SHE HAS TAKEN HER MEDICINE AND IT DID NOT HELP. Source: patient Exam Limitations: no limitations History of Present Illness Date Seen by Provider: Jan 22, 2022 Time Seen by Provider: 18:54 Initial Comments This 41-year-old woman presents to the emergency room with complaints of chest pain that started early this morning and has been consistent since then. She has a persistent dull ache that is sometimes accompanied by sharp pains in the central chest. She denies any alleviating or exacerbating factors. A couple days ago she also experienced some sensation of racing heart and palpitations. She was short of breath at that time but not at present. She denies any cough, fever, chills, vomiting, diarrhea, constipation. She has had some associated nausea without vomiting and some dizziness/lightheadedness. Pain is presently 6/10. She denies any recent medication changes. She declines any medications for nausea or pain. Allergies and Home Medications Allergies Coded Allergies: Sulfa (Sulfonamide Antibiotics) (Unverified Allergy, Unknown, 10/22/09) cephalexin (Verified Allergy, Unknown, 01/30/15) Patient Home Medication List Home Medication List Reviewed: Yes Duloxetine HCl (Cymbalta) 60 Mg Capsule.dr, 60 MG PO DAILY, (Reported) Entered as Reported by: BUDDY CHAVARRIA on 01/30/15 0755 Lurasidone HCl (Latuda) 60 Mg Tablet, 60 MG PO DAILY, (Reported) Entered as Reported by: BUDDY CHAVARRIA on 01/30/15 0755 Ondansetron (Zofran Odt) 8 Mg Tab.rapdis, 8 MG PO Q6H PRN for NAUSEA/VOMITING- 1ST LINE Prescribed by: KATIA OSBORNE on 01/04/17 1742 Ondansetron (Ondansetron Odt) 4 Mg Tab.rapdis, 4 MG PO Q8H PRN for nausea Prescribed by: DENVER CALDERON on 09/12/21 1531 Sertraline HCl (Sertraline HCl) 100 Mg Tablet, (Reported) Entered as Reported by: ROSALINA CARDOSO on 03/15/17 6617 Sumatriptan Succinate (Imitrex) 25 Mg Tablet, 25 MG PO ONCE PRN for HEADACHE Prescribed by: JOSEPH CARDENAS on 12/30/20 1727 [Carafate] , (Reported) Entered as Reported by: BRYCE MELÉNDEZ on 12/13/17 1018 Review of Systems Review of Systems Constitutional: no symptoms reported EENTM: No Symptoms Reported Respiratory: See HPI Cardiovascular: See HPI Gastrointestinal: See HPI 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: No Symptoms Reported Musculoskeletal: no symptoms reported Skin: no symptoms reported Psychiatric/Neurological: No Symptoms Reported Endocrine: No Symptoms Reported Past Nuehfsc-Zfzebi-Cuajtr Hx Patient Social History Tobacco Use?: No Smoking Status: Never a Smoker Smokeless Tobacco Frequency: Never a User Use of E-Cig and/or Vaping dev: No Use of E-Cig and/or Vaping Alexis: Never a User Substance use?: No Alcohol Use?: No Pt feels they are or have been: No Immunizations Up To Date Tetanus Booster (TDap): Unknown First/Initial COVID19 Vaccinat: May COVID19 Vaccination Juan: June COVID19 Vaccination Date: MAY 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: [employer] Past Medical History Surgery/Hospitalization HX: PMH: HYPOTHYROIDISM, ANXIETY, BIPOLAR SX: DNC, TONSILS, C-SEC Surgeries: Yes ( d&c x 2) Adenoidectomy, Section, Orthopedic (ACL repair), Tonsillectomy, Tubal Ligation Respiratory: No Cardiac: No Neurological: No : No 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 oz. 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 Mood seems slightly depressed and affect slightly flat) Skin: Normal Color, Warm/Dry Progress/Results/Core Measures Results/Orders Lab Results Laboratory Tests Test 01/22/22 18:45 01/22/22 19:11 Range/Units White Blood Count 8.6 4.3-11.0 10^3/uL Red Blood Count 4.46 3.80-5.11 10^6/uL Hemoglobin 12.5 11.5-16.0 g/dL Hematocrit 38 35-52 % Mean Corpuscular Volume 85 80-99 fL Mean Corpuscular Hemoglobin 28 25-34 pg Mean Corpuscular Hemoglobin Concent 33 32-36 g/dL Red Cell Distribution Width 13.4 10.0-14.5 % Platelet Count 268 130-400 10^3/uL Mean Platelet Volume 10.2 9.0-12.2 fL Immature Granulocyte % (Auto) 0 % Neutrophils (%) (Auto) 60 42-75 % Lymphocytes (%) (Auto) 34 12-44 % Monocytes (%) (Auto) 5 0-12 % Eosinophils (%) (Auto) 1 0-10 % Basophils (%) (Auto) 0 0-10 % Neutrophils # (Auto) 5.1 1.8-7.8 10^3/uL Lymphocytes # (Auto) 2.9 1.0-4.0 10^3/uL Monocytes # (Auto) 0.5 0.0-1.0 10^3/uL Eosinophils # (Auto) 0.1 0.0-0.3 10^3/uL Basophils # (Auto) 0.0 0.0-0.1 10^3/uL Immature Granulocyte # (Auto) 0.0 0.0-0.1 10^3/uL Prothrombin Time 13.2 12.2-14.7 SEC INR Comment 1.0 0.8-1.4 Activated Partial Thromboplast Time 29 24-35 SEC Sodium Level 138 135-145 MMOL/L Potassium Level 3.8 3.6-5.0 MMOL/L Chloride Level 103 98-107 MMOL/L Carbon Dioxide Level 25 21-32 MMOL/L Anion Gap 10 5-14 MMOL/L Blood Urea Nitrogen 8 7-18 MG/DL Creatinine 0.86 0.60-1.30 MG/DL Estimat Glomerular Filtration Rate 88 BUN/Creatinine Ratio 9 Glucose Level 81 70-105 MG/DL Calcium Level 9.8 8.5-10.1 MG/DL Corrected Calcium 9.4 8.5-10.1 MG/DL Magnesium Level 2.2 1.6-2.4 MG/DL Total Bilirubin 0.3 0.1-1.0 MG/DL Aspartate Amino Transf (AST/SGOT) 14 5-34 U/L Alanine Aminotransferase (ALT/SGPT) 11 0-55 U/L Alkaline Phosphatase 56 40-136 U/L Myoglobin 23.6 10.0-92.0 NG/ML Troponin I < 0.028 <0.028 NG/ML C-Reactive Protein High Sensitivity 1.33 H 0.00-0.50 MG/DL B-Type Natriuretic Peptide < 10.0 <100.0 PG/ML Total Protein 8.0 6.4-8.2 GM/DL Albumin 4.5 3.2-4.5 GM/DL Influenza Type A (RT-PCR) Not Detected Not Detecte Influenza Type B (RT-PCR) Not Detected Not Detecte SARS-CoV-2 RNA (RT-PCR) Not Detected Not Detecte My Orders Orders - CHEVY LOREDO MD Ekg Tracing (01/22/22 18:43) Cbc With Automated Diff (01/22/22 19:03) Magnesium (01/22/22 19:03) Chest 1 View, Ap/Pa Only (01/22/22 19:03) Comprehensive Metabolic Panel (01/22/22 19:03) Myoglobin Serum (01/22/22 19:03) Protime With Inr (01/22/22 19:03) Partial Thromboplastin Time (01/22/22 19:03) Monitor-Rhythm Ecg Trace Only (01/22/22 19:03) Ed Iv/Invasive Line Start (01/22/22 19:03) Bnp [place] (01/22/22 19:03) Troponin I [place] (01/22/22 19:03) Hs C Reactive Protein (01/22/22 19:03) Covid 19 Inhouse Test (01/22/22 19:03) Influenza A And B By Pcr (01/22/22 19:03) Vital Signs/I&O 01/22/22 01/22/22 18:38 21:17 Temp 36.5 Pulse 84 69 Resp 21 B/P (MAP) 119/79 (92) 120/76 Pulse Ox 98 O2 Delivery Room Air Room Air Blood Pressure Mean: 92 Progress Progress Note : Time: 21:06 Progress Note Work-up was unremarkable. Vital signs remained stable. I discussed possible causes of her symptoms including viral illness and pulmonary embolus. After discussing results of her work-up, I offered further screening with D-dimer and explained the necessity for follow-up CT scan if D-dimer was positive. We discussed risks and benefits of CT angiogram. We also discussed the risks associated with foregoing further work-up. She is aware that we cannot rule out pulmonary embolus or other chest pathology without further screening. She is aware that pulmonary embolus could be a potentially serious or life-threatening pathology. She expresses understanding of this risk and elects to forego any further screening or tests. She was advised to return if she changes her mind or develops worsening symptoms. Initial ECG Impression Date: Jan 22, 2022 Initial ECG Impression Time: 18:44 Initial ECG Rate: 1844 Initial ECG Rhythm: Normal Sinus Initial ECG Intervals: Normal Initial ECG Impression: Normal Comment Normal sinus rhythm with no ST elevation or depression. No abnormal intervals or axis deviation. Diagnostic Imaging Diagonstic Imaging: Xray Plain Films/CT/US/NM/MRI: chest Comments NAME: ATUL MARTIN MED REC#: [id number] PT STATUS: REG ER : 1980 PHYSICIAN: CHEVY LOREDO MD ADMIT DATE: 01/22/22/ER Draft Date of Exam:01/22/22 CHEST 1 VIEW, AP/PA ONLY INDICATION: Chest pain. COMPARISON: 05/26/2017. FINDINGS: Single frontal view of the chest demonstrates normal heart size and pulmonary vascularity. The lungs are well aerated and clear. No large pleural effusion or pneumothorax is seen. The visualized osseous structures show no acute abnormalities. IMPRESSION: 1. No acute cardiopulmonary process. Dictated on workstation # [id number] Dict: 01/22/221925 Trans: 01/22/221926 [id number] Interpreted by: YEIMI FRYE MD Departure Impression Primary Impression: Atypical chest pain Additional Impressions: Palpitation Dizziness Disposition: HOME, SELF-CARE Condition: Stable Departure-Patient Inst. Decision time for Depature: 21:05 Referrals: NO,LOCAL PHYSICIAN (PCP/Family) Primary Care Physician Patient Instructions: Chest Pain Add. Discharge Instructions: The exact cause of your symptoms is uncertain. Viral illness is a possible cause. You may take Tylenol (acetaminophen) up to 1000 mg every 6 hours as needed and/or ibuprofen up to 600 mg every 6 hours as needed for discomfort. Follow-up with your primary care provider soon as possible. Please call on Tuesday for follow-up appointment. Return to the ER if you have worsening symptoms or change your mind about sc reening for blood clot. Call with questions or concerns. All discharge instructions reviewed with patient and/or family. Voiced understanding. CHEVY LOREDO MD Jan 22, 2022 20:07
[2022-01-22 21:17] VITALS: BP 120/76
== END 2022-01-22 21:17 | disposition home or self-care (01) ==
LOC: EDUNIT# 18:35 → ER 18:37
DX: R07.9 Chest pain, unspecified (principal); R00.2 Palpitations; R42 Dizziness and giddiness; Z20.822 Contact with and (suspected) exposure to COVID-19
CPT/HCPCS: 36415; 71045; 80053; 83735; 83874; 83880; 84484; 85025; 85610; 85730; 86141; 87636

== ENCOUNTER → 2022-02-24 | Outpatient (CLI) | payer MEDICAID ==
[~2022-02-24] MED LIST changes: +CATHETER FLUSH 10 ML SYR IV PRN; +HOLD METFORMIN - RECEIVED CONTRAST 20 ML VIAL IV SCH; +IOHEXOL 350 MG/ML 100 ML (OMNIPAQUE 350) VIAL IV ONE; +NS 100 ML (IVPB) BAG IV ONE
--- NOTE | 2022-02-24 11:52 | Diagnostic Imaging Report ---
EXAMINATION: CT angiography of the chest. TECHNIQUE: Contrast enhanced thin section helical images were obtained through the chest with intravenous contrast timed for the optimal opacification of the arterial structures per CTA protocol. Post-processing, reconstructions and interpretation of angiographic images of the vessels was performed. 3D MIP reconstructions were performed and reviewed. All CT scans use one or more of the following dose optimizing techniques: automated exposure control, MA and/or KvP adjustment based on a patient size and exam type, or iterative reconstruction. HISTORY: Dyspnea on exertion. COMPARISON: None available. FINDINGS: There is no pulmonary embolism. There is no edema or pneumonia. No pleural effusion. No pneumothorax. No suspicious nodules. There is no axillary or supraclavicular lymphadenopathy. There is no mediastinal lymphadenopathy. Heart size is normal. There are no coronary artery calcifications. No pericardial effusion. Aorta is normal in caliber. Limited views of the upper abdomen are unremarkable. There are no suspicious osseous lesions. IMPRESSION: 1. No pulmonary embolism. Dictated by: Dictated on workstation # [id number]
== END ==
LOC: RAD 10:53
PROVIDERS: ATTEND Family Medicine
DX: R06.09 Other forms of dyspnea (principal); R07.9 Chest pain, unspecified
CPT/HCPCS: 71275